=== PATIENT | female | born 1935 | race Caucasian/White ===

== ENCOUNTER 2018-07-27 11:50 | Emergency (ER) | payer MEDICARE, OTHER ==
[~2018-07-27] VITALS: Ht 162.6 cm; Wt 53.2 kg
[~2018-07-27 11:50] MED LIST: AMIO200T40 PO; ASPI81TA52 PO; ATOR20TA PO; CARV6.253 PO; CHOL2000 PO; FURO-150 PO; LORA1TAB PO; MELA3TAB PO; NITR0.4T48 SL; OMEG1CAP2 PO; RIVA20TA PO; SPIR25TA5 PO; VALS160T2 PO
[2018-07-27 12:40] LABS: BASOPHILS # (AUTO) 0.1 X10'3 (0-0.2); BASOPHILS % (AUTO) 0.7 % (0-1); EOSINOPHILS # (AUTO) 0.2 X10'3 (0-0.9); EOSINOPHILS % (AUTO) 2.4 % (0-6); HEMATOCRIT 40.9 % (35.0-45.0); HEMOGLOBIN 13.6 g/dl (12.0-16.0); LYMPHOCYTES # (AUTO) 2.4 X10'3 (1.1-4.8); MEAN CORPUSCULAR HEMOGLOBIN 30.2 PG (27.0-31.0); MEAN CORPUSCULAR HGB CONC 33.3 % (33.0-36.5); MEAN CORPUSCULAR VOLUME 90.5 FL (78-98); MEAN PLATELET VOLUME 9.6 FL (7.4-10.4); MONOCYTES # (AUTO) 1.1 X10'3 (0-0.9); NEUTROPHILS # (AUTO) 4.4 X10'3 (1.8-7.7); NEUTROPHILS % (AUTO) 53.9 % (42-75); PLATELET COUNT 239 X10'3 (140-440); RED BLOOD COUNT 4.52 X10'6 (4.20-5.60); RED CELL DISTRIBUTION WIDTH 17.2 % (11.5-14.5); WHITE BLOOD COUNT 8.2 X10'3 (4.5-11.0)
[2018-07-27 12:56] LABS: ALANINE AMINOTRANSFERASE 33 U/L (12-78); ALBUMIN 3.2 G/DL (3.4-5.0); ALBUMIN/GLOBULIN RATIO 0.7 (1.1-1.5); ALKALINE PHOSPHATASE 87 IU/L (46-116); ANION GAP 12 (8-16); ASPARTATE AMINO TRANSFERASE 63 U/L (10-37); BILIRUBIN,TOTAL 0.8 MG/DL (0.1-1.0); BLOOD UREA NITROGEN 29 MG/DL (7-18); BUN/CREATININE RATIO 14.4 (6.6-38.0); CALCIUM 11.3 MG/DL (8.5-10.1); CHLORIDE 95 MMOL/L (99-107); CREATININE 2.01 MG/DL (0.40-0.90); GLUCOSE 115 MG/DL (70-104); SODIUM 136 MMOL/L (135-145); TOTAL CARBON DIOXIDE 29.1 MMOL/L (24-32); TOTAL PROTEIN 7.6 G/DL (6.4-8.2); eGFR 24 ML/MIN
[2018-07-27 13:10] LABS: POTASSIUM 2.5 MMOL/L (3.5-5.1)
[2018-07-27 13:19] LABS: INR 1.2 INR
[2018-07-27] MEDS ORDERED: ondansetron/PF 4mg/2ml inj IV ONE (13:50)
[2018-07-27] MEDS ORDERED: magnesium 2GM in 50ml NS 50 ML IV ONE (14:10)
[2018-07-27 14:17] LABS: LIPASE 151 U/L (73-393); MAGNESIUM 2.2 MG/DL (1.5-2.4); TROPONIN I 0.04 NG/ML (0.0-0.05)
[2018-07-27] MEDS: potassium 10mEq/100ml NS w/LIDOcaine (10mg/bag) IV SCH ×2 (14:32→15:59)
[2018-07-27] MEDS ORDERED: potassium Cl 20 mEq SR tablet PO STA (15:39)
[2018-07-27] MEDS ORDERED: normal saline 1000ML IV soln IVB ONE (15:40)
[2018-07-27 17:01] VITALS: BP 157/61
[2018-07-27 17:32] LABS: CLARITY,URINE CLEAR (Clear); COLOR,URINE YELLOW (Yellow); GLUCOSE, URINE NEGATIVE (Neg); KETONES,URINE NEGATIVE (Neg); LEUKOCYTE ESTERASE ,URINE NEGATIVE (Neg); NITRITES, URINE NEGATIVE (Neg); OCCULT BLOOD,URINE TRACE-INTACT (Neg); PROTEIN,URINE NEGATIVE (Neg); UROBILINOGEN,URINE 0.2 E.U/dL (0.2-1.0)
[2018-07-27 17:35] LABS: UA COLLECTION TYPE CLN CATCH MIDSTREAM
[2018-07-27 17:39] LABS: BACTERIA,URINE NONE SEEN /HPF (Neg); HYALINE CASTS 0-3 /LPF (NEGATIVE); MUCUS STRANDS NONE SEEN /LPF (Neg); RBC,URINE 0-2 /HPF (0-2); SQUAMOUS EPITHELIAL CELL,UR FEW /LPF (FEW); WBC,URINE NONE SEEN /HPF (0-4)
[2018-07-27] MEDS ORDERED: ONDA4TAB12 PO (17:57)
[2018-07-27] MEDS ORDERED: POTA20TA19 PO (17:57)
== END 2018-07-27 18:09 | disposition home or self-care (01) ==
LOC: ER 11:51
DX: E87.6 Hypokalemia (principal); E86.0 Dehydration; R11.2 Nausea with vomiting, unspecified; I25.2 Old myocardial infarction; I25.10 Atherosclerotic heart disease of native coronary artery without angina pectoris; I10 Essential (primary) hypertension; I48.91 Unspecified atrial fibrillation; Z86.73 Personal history of transient ischemic attack (TIA), and cerebral infarction without residual deficits; M81.0 Age-related osteoporosis without current pathological fracture; Z98.61 Coronary angioplasty status; Z98.890 Other specified postprocedural states; Z88.6 Allergy status to analgesic agent; Z88.5 Allergy status to narcotic agent; Z88.8 Allergy status to other drugs, medicaments and biological substances; Z79.82 Long term (current) use of aspirin; Z79.899 Other long term (current) drug therapy
CPT/HCPCS: 36415; 71045; 74176; 80053; 81001; 83605; 83690; 83735; 84145; 84484; 85025; 85610; 93005; 96365; 96366; 96368; 96375; 99284; J2405; J3475; J3480; J7030

== ENCOUNTER 2018-08-18 01:31 | Inpatient (IN) | payer MEDICARE, OTHER ==
[~2018-08-18] VITALS: Ht 162.6 cm; Wt 50.0 kg
[~2018-08-18 01:31] MED LIST changes: +ONDA4TAB12 PO; +POTA20TA19 PO
[2018-08-18] MEDS ORDERED: ondansetron/PF 4mg/2ml inj IV ONE ×2 (02:00→02:55)
[2018-08-18] MEDS ORDERED: normal saline 1000ml 1,000 ML IV ONE (02:00)
[2018-08-18] MEDS ORDERED: acetaminophen 325mg tablet PO ONE (02:00)
[2018-08-18] MEDS ORDERED: HYDROcodone/acetaminophen 5mg/325mg tablet PO ONE (02:30)
[2018-08-18 02:56] LABS: ALANINE AMINOTRANSFERASE 28 U/L (12-78); ALBUMIN 3.1 G/DL (3.4-5.0); ALBUMIN/GLOBULIN RATIO 0.8 (1.1-1.5); ALKALINE PHOSPHATASE 66 IU/L (46-116); ANION GAP 9 (8-16); ASPARTATE AMINO TRANSFERASE 37 U/L (10-37); BILIRUBIN,TOTAL 0.7 MG/DL (0.1-1.0); BLOOD UREA NITROGEN 33 MG/DL (7-18); BUN/CREATININE RATIO 20.6 (6.6-38.0); CALCIUM 10.7 MG/DL (8.5-10.1); CHLORIDE 100 MMOL/L (99-107); GLUCOSE 124 MG/DL (70-104); MAGNESIUM 2.1 MG/DL (1.5-2.4); SODIUM 137 MMOL/L (135-145); TOTAL CARBON DIOXIDE 27.6 MMOL/L (24-32); TOTAL PROTEIN 7.1 G/DL (6.4-8.2); eGFR 31 ML/MIN
[2018-08-18 03:02] LABS: BASOPHILS % (AUTO) 0.6 % (0-1); EOSINOPHILS # (AUTO) 0.2 X10'3 (0-0.9); EOSINOPHILS % (AUTO) 2.9 % (0-6); HEMATOCRIT 41.9 % (35.0-45.0); HEMOGLOBIN 13.4 g/dl (12.0-16.0); LYMPHOCYTES # (AUTO) 2.1 X10'3 (1.1-4.8); LYMPHOCYTES % (AUTO) 26.7 % (21-51); MEAN CORPUSCULAR HEMOGLOBIN 29.9 PG (27.0-31.0); MEAN CORPUSCULAR VOLUME 93.5 FL (78-98); MEAN PLATELET VOLUME 10.7 FL (7.4-10.4); MONOCYTES # (AUTO) 0.9 X10'3 (0-0.9); MONOCYTES % (AUTO) 11.4 % (2-12); NEUTROPHILS # (AUTO) 4.6 X10'3 (1.8-7.7); NEUTROPHILS % (AUTO) 58.4 % (42-75); PLATELET COUNT 198 X10'3 (140-440); RED BLOOD COUNT 4.48 X10'6 (4.20-5.60); RED CELL DISTRIBUTION WIDTH 16.7 % (11.5-14.5); WHITE BLOOD COUNT 7.8 X10'3 (4.5-11.0)
[2018-08-18 03:07] LABS: INR 1.1 INR; PROTHROMBIN TIME 11.4 SECONDS (9.0-12.0)
[2018-08-18] MEDS ORDERED: potassium Cl 20 mEq SR tablet PO STA (03:14)
[2018-08-18] MEDS: potassium 10mEq/100ml NS w/LIDOcaine (10mg/bag) IV SCH ×2 (04:15→04:51)
[2018-08-18] MEDS: normal saline 1000ml 1,000 ML IV SCH ×3 (04:16→21:20)
[2018-08-18] MEDS ORDERED: FURO-150 PO (04:18)
[2018-08-18] MEDS ORDERED: DOCU-28 PO (04:18)
[2018-08-18] MEDS ORDERED: MELA1TAB17 PO (04:18)
[2018-08-18] MEDS ORDERED: AMLO2.5T5 PO (04:18)
[2018-08-18] MEDS ORDERED: LOSA50TA64 PO (04:18)
[2018-08-18] MEDS ORDERED: NITR0.4T51 SL (04:18)
[2018-08-18] MEDS ORDERED: CARV3.122 PO (04:18)
[2018-08-18] MEDS ORDERED: HYDROcodone/acetaminophen 5mg/325mg tablet PO PRN (04:20)
[2018-08-18] MEDS ORDERED: magnesium Cl slow-release 64mg tablet PO PRN (04:20)
[2018-08-18] MEDS ORDERED: mag hydrox/Alum hydrox/simeth 30ml oral suspension PO PRN (04:20)
[2018-08-18] MEDS ORDERED: ondansetron/PF 4mg/2ml inj IV PRN (04:20)
[2018-08-18] MEDS ORDERED: potassium Cl 20 mEq SR tablet PO PRN ×2 (04:20)
[2018-08-18] MEDS ORDERED: magnesium 4gm in 100ml NS 100 ML IV PRN (04:20)
[2018-08-18] MEDS ORDERED: potassium Cl 40MEQ/NS 500ml 500 ML IV PRN ×2 (04:20)
[2018-08-18] MEDS ORDERED: magnesium 2GM in 50ml NS 50 ML IV PRN (04:20)
[2018-08-18] MEDS ORDERED: morphine 4 MG/ML inj SYRINge IV PRN (04:20)
[2018-08-18] MEDS ORDERED: acetaminophen 325mg tablet PO PRN ×2 (04:20)
[2018-08-18] MEDS ORDERED: magnesium hydroxide 30ml (MOM) UD suspension PO PRN (04:20)
[2018-08-18] MEDS ORDERED: ESOM20CA38 PO (04:21)
[2018-08-18] MEDS ORDERED: docusate sod 100mg capsule PO PRN (04:25)
[2018-08-18] MEDS ORDERED: nitroGLYCERIN 0.4mg SUBLingual tab SL PRN (04:25)
[2018-08-18] MEDS: morphine 4 MG/ML inj SYRINge IV PRN ×2 (04:51→12:44)
[2018-08-18 05:13] LABS: COLOR,URINE YELLOW (Yellow); GLUCOSE, URINE NEGATIVE (Neg); KETONES,URINE NEGATIVE (Neg); LEUKOCYTE ESTERASE ,URINE NEGATIVE (Neg); NITRITES, URINE NEGATIVE (Neg); OCCULT BLOOD,URINE TRACE-INTACT (Neg); PH,URINE 5.5 (4.8-8.0); PROTEIN,URINE NEGATIVE (Neg); UROBILINOGEN,URINE 0.2 E.U/dL (0.2-1.0)
[2018-08-18 05:27] LABS: CLARITY,URINE SLIGHTLY CLOUDY (Clear); UA COLLECTION TYPE STRAIGHT CATH
[2018-08-18 05:28] LABS: BACTERIA,URINE FEW /HPF (Neg); MUCUS STRANDS FEW /LPF (Neg); RBC,URINE 0-2 /HPF (0-2); SQUAMOUS EPITHELIAL CELL,UR FEW /LPF (FEW); WBC,URINE 0-4 /HPF (0-4)
[2018-08-18] MEDS ORDERED: aspirin 81mg tablet.DR PO SCH (08:00)
[2018-08-18] MEDS ORDERED: amLODIPine 2.5mg tablet PO SCH (08:00)
[2018-08-18] MEDS: K and/or MAG REPLACEMENT MC SCH (08:00)
[2018-08-18] MEDS ORDERED: pantoprazole 40mg Tablet.DR PO SCH (08:00)
[2018-08-18] MEDS ORDERED: vitamin D (cholecalciferol) 1,000 unit tablet PO SCH (08:00)
[2018-08-18] MEDS ORDERED: losartan 50mg tablet PO SCH (08:00)
[2018-08-18] MEDS ORDERED: diatrozoate meglu/diatrozoate sod (37% iodine) 120ML oral solution PO ONE (15:25)
[2018-08-18] MEDS ORDERED: diatr meglu/diatrizoate 30ml oral sol.-(3 dose) bottle PO SCH (15:31)
[2018-08-18] MEDS ORDERED: proCHLORperazine 10 MG/2 ml inj IV PRN (15:35)
[2018-08-18] MEDS: diatr meglu/diatrizoate 30ml oral sol.-(3 dose) bottle PO SCH ×3 (18:40→21:00)
[2018-08-18] MEDS ORDERED: pantoprazole 40 MG vial IV SCH (20:00)
[2018-08-18] MEDS ORDERED: PYRIDOXINE HCL PO SCH (21:00)
[2018-08-18] MEDS ORDERED: MELATONIN PO SCH (21:00)
[2018-08-18] MEDS ORDERED: LORazepam 1 MG tablet PO SCH (21:00)
[2018-08-18] MEDS ORDERED: temazepam 15mg capsule PO PRN (21:00)
[2018-08-18] MEDS ORDERED: pantoprazole 40 MG vial IV ONE (21:25)
[2018-08-18] MEDS ORDERED: LORazepam 0.5 MG tablet PO ONE (21:25)
[2018-08-18] MEDS: atorvastatin 20mg tablet PO SCH (21:39)
--- NOTE | 2018-08-18 23:37 | NUR ---
RELIEVING RN FOR BREAK, PT IS SLEEPING ON HOSPITAL BED, RESP EVEN AND UNLABORED,
[2018-08-19] MEDS: normal saline 1000ml 1,000 ML IV SCH ×3 (00:16→20:26)
[2018-08-19] MEDS: morphine 4 MG/ML inj SYRINge IV PRN (03:55)
[2018-08-19] MEDS ORDERED: sincalide inj 1 MCG in normal saline 50ml IV soln 50 ML IV ONE (07:55)
[2018-08-19] MEDS: K and/or MAG REPLACEMENT MC SCH (08:00)
[2018-08-19] MEDS ORDERED: vitamin D (cholecalciferol) 1,000 unit tablet PO ONE (10:25)
[2018-08-19] MEDS ORDERED: losartan 50mg tablet PO ONE (11:05)
[2018-08-19] MEDS ORDERED: pantoprazole 40 MG vial IV ONE (11:05)
[2018-08-19] MEDS ORDERED: amLODIPine 2.5mg tablet PO ONE (11:05)
[2018-08-19 11:52] LABS: BASOPHILS # (AUTO) 0.1 X10'3 (0-0.2); BASOPHILS % (AUTO) 0.7 % (0-1); EOSINOPHILS # (AUTO) 0.2 X10'3 (0-0.9); EOSINOPHILS % (AUTO) 1.8 % (0-6); HEMATOCRIT 36.5 % (35.0-45.0); HEMOGLOBIN 11.7 g/dl (12.0-16.0); LYMPHOCYTES # (AUTO) 2.2 X10'3 (1.1-4.8); LYMPHOCYTES % (AUTO) 23.3 % (21-51); MEAN CORPUSCULAR HEMOGLOBIN 29.9 PG (27.0-31.0); MEAN CORPUSCULAR HGB CONC 32.1 % (33.0-36.5); MEAN CORPUSCULAR VOLUME 93.4 FL (78-98); MEAN PLATELET VOLUME 9.8 FL (7.4-10.4); MONOCYTES # (AUTO) 1.2 X10'3 (0-0.9); MONOCYTES % (AUTO) 13.1 % (2-12); NEUTROPHILS # (AUTO) 5.8 X10'3 (1.8-7.7); NEUTROPHILS % (AUTO) 61.1 % (42-75); PLATELET COUNT 148 X10'3 (140-440); RED BLOOD COUNT 3.91 X10'6 (4.20-5.60); RED CELL DISTRIBUTION WIDTH 16.9 % (11.5-14.5); WHITE BLOOD COUNT 9.5 X10'3 (4.5-11.0)
[2018-08-19 12:05] LABS: ALANINE AMINOTRANSFERASE 25 U/L (12-78); ALBUMIN 2.6 G/DL (3.4-5.0); ALBUMIN/GLOBULIN RATIO 0.7 (1.1-1.5); ALKALINE PHOSPHATASE 55 IU/L (46-116); ANION GAP 10 (8-16); ASPARTATE AMINO TRANSFERASE 31 U/L (10-37); BILIRUBIN,TOTAL 0.7 MG/DL (0.1-1.0); BLOOD UREA NITROGEN 14 MG/DL (7-18); BUN/CREATININE RATIO 15.1 (6.6-38.0); CALCIUM 8.8 MG/DL (8.5-10.1); CHLORIDE 110 MMOL/L (99-107); CREATININE 0.93 MG/DL (0.40-0.90); GLUCOSE 94 MG/DL (70-104); POTASSIUM 3.6 MMOL/L (3.5-5.1); SODIUM 144 MMOL/L (135-145); TOTAL CARBON DIOXIDE 23.7 MMOL/L (24-32); TOTAL PROTEIN 6.2 G/DL (6.4-8.2); eGFR 58 ML/MIN
[2018-08-19 12:08] LABS: MAGNESIUM 1.7 MG/DL (1.5-2.4)
[2018-08-19 12:29] LABS: TROPONIN I 0.07 NG/ML (0.0-0.05)
[2018-08-19] MEDS ORDERED: MIDAZolam 5mg/5ml vial ONE (12:37)
[2018-08-19] MEDS ORDERED: LIDOcaine Viscous 15ml cup ONE (12:37)
[2018-08-19] MEDS ORDERED: fentaNYL/PF 50MCG/1 ML 2ML syringe ONE (12:37)
--- NOTE | 2018-08-19 12:40 | NUR ---
PT ARRIVED TO FLOOR, ASSESSMENT AND 2 RN SKIN CHECK DONE. FAMILY IN ROOM. PT OFF FLOOR FOR EGD AND THEN SHE WILL BE TAKEN FOR HIDA SCAN
[2018-08-19 12:52] VITALS: BP 177/74
[2018-08-19 13:35] VITALS: BP 148/66
[2018-08-19 13:45] VITALS: BP 143/64
[2018-08-19 13:55] VITALS: BP 153/96
[2018-08-19 14:05] VITALS: BP 162/68
[2018-08-19] MEDS: HYDROcodone/acetaminophen 10/325mg tab PO PRN ×2 (16:06→21:35)
--- NOTE | 2018-08-19 16:29 | NUR ---
CARMEN JAVIER FROM [facility] SAYS PT IS WANTING TO BE LIMITED CODE, NO COMPRESSIONS, I HAVE PAGED DR HERNANDEZ REGARDING THIS. PT IS BACK TO FLOOR, I WILL PAGE HIM AGAIN SO HE CAN ADDRESS THIS WITH HER.
--- NOTE | 2018-08-19 17:10 | NUR ---
Dr Charles aware of pt want to be a limited code, he says he will talk to her in the morning regarding her wishes for code status
--- NOTE | 2018-08-19 18:42 | NUR ---
Problems reprioritized. Patient report given, questions answered & plan of care reviewed with
[2018-08-19 19:00] VITALS: BP 123/47
[2018-08-19] MEDS: LORazepam 0.5 MG tablet PO SCH (20:26)
[2018-08-19] MEDS: pantoprazole 40 MG vial IV SCH (20:26)
[2018-08-19] MEDS: atorvastatin 20mg tablet PO SCH (20:26)
[2018-08-20] VITALS: BP 120/43
[2018-08-20] MEDS: HYDROcodone/acetaminophen 10/325mg tab PO PRN ×3 (01:53→23:35)
[2018-08-20] MEDS: normal saline 1000ml 1,000 ML IV SCH ×2 (06:16→16:59)
[2018-08-20 07:00] VITALS: BP 135/56
[2018-08-20] MEDS: K and/or MAG REPLACEMENT MC SCH (07:03)
--- NOTE | 2018-08-20 07:12 | NUR ---
Patient in room DEYSI 358. I have received report from Espinoza JAVIER and had the opportunity to ask questions and assume patient care.
--- NOTE | 2018-08-20 07:36 | NUR ---
Problems reprioritized. Patient report given, questions answered & plan of care reviewed with Addendum: 08/20/18 at 0736 by Tu Gil RN Amended: Links added.
[2018-08-20] MEDS: amLODIPine 2.5mg tablet PO SCH (08:28)
[2018-08-20] MEDS: vitamin D (cholecalciferol) 1,000 unit tablet PO SCH (08:28)
[2018-08-20] MEDS: losartan 50mg tablet PO SCH (08:28)
[2018-08-20] MEDS: pantoprazole 40 MG vial IV SCH ×2 (08:29→20:53)
[2018-08-20 09:38] LABS: BASOPHILS % (AUTO) 0.4 % (0-1); EOSINOPHILS # (AUTO) 0.2 X10'3 (0-0.9); HEMATOCRIT 31.2 % (35.0-45.0); HEMOGLOBIN 10.1 g/dl (12.0-16.0); LYMPHOCYTES # (AUTO) 1.5 X10'3 (1.1-4.8); LYMPHOCYTES % (AUTO) 16.6 % (21-51); MEAN CORPUSCULAR HEMOGLOBIN 30.8 PG (27.0-31.0); MEAN CORPUSCULAR HGB CONC 32.4 % (33.0-36.5); MEAN PLATELET VOLUME 10.1 FL (7.4-10.4); MONOCYTES # (AUTO) 0.9 X10'3 (0-0.9); MONOCYTES % (AUTO) 10.2 % (2-12); NEUTROPHILS # (AUTO) 6.4 X10'3 (1.8-7.7); NEUTROPHILS % (AUTO) 70.8 % (42-75); PLATELET COUNT 138 X10'3 (140-440); RED BLOOD COUNT 3.29 X10'6 (4.20-5.60); RED CELL DISTRIBUTION WIDTH 16.6 % (11.5-14.5); WHITE BLOOD COUNT 9.1 X10'3 (4.5-11.0)
[2018-08-20 09:48] LABS: ALBUMIN 2.2 G/DL (3.4-5.0); ANION GAP 10 (8-16); BLOOD UREA NITROGEN 8 MG/DL (7-18); BUN/CREATININE RATIO 10.1 (6.6-38.0); CHLORIDE 111 MMOL/L (99-107); CREATININE 0.79 MG/DL (0.40-0.90); GLUCOSE 90 MG/DL (70-104); MAGNESIUM 1.6 MG/DL (1.5-2.4); POTASSIUM 3.3 MMOL/L (3.5-5.1); SODIUM 144 MMOL/L (135-145); TOTAL CARBON DIOXIDE 23.5 MMOL/L (24-32); eGFR 70 ML/MIN
[2018-08-20 12:00] VITALS: BP 131/74
--- NOTE | 2018-08-20 18:45 | NUR ---
Problems reprioritized. Patient report given, questions answered & plan of care reviewed with Nimo JAVIER.
[2018-08-20 20:00] VITALS: BP 147/59
[2018-08-20] MEDS: LORazepam 0.5 MG tablet PO SCH (20:53)
[2018-08-20] MEDS: atorvastatin 20mg tablet PO SCH (20:53)
[2018-08-21] VITALS: BP 134/51
[2018-08-21] MEDS: normal saline 1000ml 1,000 ML IV SCH ×2 (01:33→12:16)
[2018-08-21 06:16] LABS: BASOPHILS % (AUTO) 0.3 % (0-1); EOSINOPHILS # (AUTO) 0.3 X10'3 (0-0.9); EOSINOPHILS % (AUTO) 2.4 % (0-6); HEMATOCRIT 30.4 % (35.0-45.0); HEMOGLOBIN 10.1 g/dl (12.0-16.0); LYMPHOCYTES # (AUTO) 2.6 X10'3 (1.1-4.8); LYMPHOCYTES % (AUTO) 23.1 % (21-51); MEAN CORPUSCULAR HGB CONC 33.4 % (33.0-36.5); MEAN PLATELET VOLUME 10.5 FL (7.4-10.4); MONOCYTES # (AUTO) 1.7 X10'3 (0-0.9); MONOCYTES % (AUTO) 14.8 % (2-12); NEUTROPHILS # (AUTO) 6.8 X10'3 (1.8-7.7); NEUTROPHILS % (AUTO) 59.4 % (42-75); PLATELET COUNT 125 X10'3 (140-440); RED BLOOD COUNT 3.26 X10'6 (4.20-5.60); RED CELL DISTRIBUTION WIDTH 16.7 % (11.5-14.5); WHITE BLOOD COUNT 11.4 X10'3 (4.5-11.0)
[2018-08-21 06:20] LABS: ALBUMIN 2.1 G/DL (3.4-5.0); ANION GAP 11 (8-16); BLOOD UREA NITROGEN 7 MG/DL (7-18); BUN/CREATININE RATIO 10.4 (6.6-38.0); CALCIUM 7.8 MG/DL (8.5-10.1); CHLORIDE 110 MMOL/L (99-107); CREATININE 0.67 MG/DL (0.40-0.90); GLUCOSE 84 MG/DL (70-104); MAGNESIUM 1.4 MG/DL (1.5-2.4); POTASSIUM 3.1 MMOL/L (3.5-5.1); SODIUM 143 MMOL/L (135-145); TOTAL CARBON DIOXIDE 22.5 MMOL/L (24-32); eGFR 84 ML/MIN
--- NOTE | 2018-08-21 06:31 | NUR ---
Problems reprioritized. Patient report given, questions answered & plan of care reviewed with CONCEPCION Bah.
[2018-08-21] MEDS ORDERED: magnesium 4gm in 100ml NS 100 ML IV PRN (06:35)
[2018-08-21] MEDS ORDERED: potassium Cl 20 mEq SR tablet PO PRN (06:35)
[2018-08-21] MEDS ORDERED: magnesium 2GM in 50ml NS 50 ML IV PRN (06:35)
[2018-08-21] MEDS ORDERED: potassium Cl 40MEQ/NS 500ml 500 ML IV PRN ×2 (06:35)
[2018-08-21 07:52] VITALS: BP 135/51
[2018-08-21] MEDS: vitamin D (cholecalciferol) 1,000 unit tablet PO SCH (08:05)
[2018-08-21] MEDS: magnesium Cl slow-release 64mg tablet PO PRN ×2 (08:05→13:05)
[2018-08-21] MEDS: potassium Cl 20 mEq SR tablet PO PRN ×2 (08:06→13:05)
[2018-08-21] MEDS: pantoprazole 40 MG vial IV SCH (08:06)
[2018-08-21] MEDS: amLODIPine 2.5mg tablet PO SCH (08:06)
[2018-08-21] MEDS: losartan 50mg tablet PO SCH (08:06)
[2018-08-21] MEDS: K and/or MAG REPLACEMENT MC SCH (08:07)
[2018-08-21] MEDS: HYDROcodone/acetaminophen 10/325mg tab PO PRN (08:16)
[2018-08-21 11:21] VITALS: BP 123/45
--- NOTE | 2018-08-21 15:26 | NUR ---
pt left with nikole cargo in w/c with all belongings. report called to facility.
== END 2018-08-21 15:35 | DRG 562 ==
LOC: ER 01:31 → ED HOLD 04:16 → SUR 3N 08-19 12:05
PROVIDERS: ADMIT Hospitalist; ATTEND Hospitalist
PROC: 0DJ08ZZ Inspection of Upper Intestinal Tract, Via Natural or Artificial Opening Endoscopic (ICD-10-PCS; principal; 2018-08-19)
DX: S42.211A Unspecified displaced fracture of surgical neck of right humerus, initial encounter for closed fracture (principal); I21.A1 Myocardial infarction type 2; N17.9 Acute kidney failure, unspecified; I50.22 Chronic systolic (congestive) heart failure; E87.6 Hypokalemia; K22.2 Esophageal obstruction; I48.91 Unspecified atrial fibrillation; I25.10 Atherosclerotic heart disease of native coronary artery without angina pectoris; R00.1 Bradycardia, unspecified; W19.XXXA Unspecified fall, initial encounter; K44.9 Diaphragmatic hernia without obstruction or gangrene; E86.0 Dehydration; I11.0 Hypertensive heart disease with heart failure; K22.8 Other specified diseases of esophagus; M81.0 Age-related osteoporosis without current pathological fracture; Z66 Do not resuscitate; I25.2 Old myocardial infarction; Z86.73 Personal history of transient ischemic attack (TIA), and cerebral infarction without residual deficits; Z85.41 Personal history of malignant neoplasm of cervix uteri; Y93.89 Activity, other specified; Y92.89 Other specified places as the place of occurrence of the external cause; Y99.8 Other external cause status
CPT/HCPCS: 36415; 70450; 71045; 73030; 74176; 76700; 78226; 80048; 80053; 81001; 83735; 83880; 84484; 85025; 85610; 87070; 93005; 93306; 96374; 97116; 97162; 97530; 99152; 99285; A4620; A9537; C9113; G0378; J0780; J2250; J2270; J2405; J2805; J3010; J3480; J7030; J7040; Q9963

== ENCOUNTER 2018-10-16 04:57 | Inpatient (IN) | payer MEDICARE, OTHER ==
[~2018-10-16] VITALS: Ht 160 cm; Wt 45.5 kg
[~2018-10-16 04:57] MED LIST changes: -AMIO200T40 PO; +AMLO2.5T5 PO; +CARV3.122 PO; -CARV6.253 PO; +DOCU-28 PO; +ESOM20CA38 PO; +LOSA50TA64 PO; +MELA1TAB17 PO; -MELA3TAB PO; -NITR0.4T48 SL; +NITR0.4T51 SL; -OMEG1CAP2 PO; -ONDA4TAB12 PO; -POTA20TA19 PO; -RIVA20TA PO; -SPIR25TA5 PO; -VALS160T2 PO
--- NOTE | 2018-10-16 05:33 | NUR ---
Alex art in [facility] - 10/16/18 at 0534 by BELLE Patient awake and up to restroom.
[2018-10-16 05:41] LABS: BASOPHILS # (AUTO) 0.1 X10'3 (0-0.2); BASOPHILS % (AUTO) 0.9 % (0-1); EOSINOPHILS # (AUTO) 0.1 X10'3 (0-0.9); EOSINOPHILS % (AUTO) 1.1 % (0-6); HEMATOCRIT 49.7 % (35.0-45.0); HEMOGLOBIN 16.9 g/dl (12.0-16.0); LYMPHOCYTES # (AUTO) 2.8 X10'3 (1.1-4.8); MEAN CORPUSCULAR HEMOGLOBIN 31.6 PG (27.0-31.0); MEAN CORPUSCULAR HGB CONC 33.9 g/dL (33.0-36.5); MEAN CORPUSCULAR VOLUME 93.1 FL (78-98); MEAN PLATELET VOLUME 10.1 FL (7.4-10.4); MONOCYTES # (AUTO) 0.9 X10'3 (0-0.9); MONOCYTES % (AUTO) 12.5 % (2-12); NEUTROPHILS # (AUTO) 3.5 X10'3 (1.8-7.7); NEUTROPHILS % (AUTO) 47.5 % (42-75); PLATELET COUNT 185 X10'3 (140-440); RED BLOOD COUNT 5.34 X10'6 (4.20-5.60); RED CELL DISTRIBUTION WIDTH 16.5 % (11.5-14.5); WHITE BLOOD COUNT 7.3 X10'3 (4.5-11.0)
[2018-10-16 05:42] LABS: CLARITY,URINE CLEAR (Clear); COLOR,URINE YELLOW (Yellow); GLUCOSE, URINE NEGATIVE (Neg); KETONES,URINE NEGATIVE (Neg); LEUKOCYTE ESTERASE ,URINE NEGATIVE (Neg); NITRITES, URINE NEGATIVE (Neg); OCCULT BLOOD,URINE NEGATIVE (Neg); PROTEIN,URINE NEGATIVE (Neg); UROBILINOGEN,URINE 0.2 E.U/dL (0.2-1.0)
[2018-10-16 05:45] LABS: UA COLLECTION TYPE STRAIGHT CATH
[2018-10-16 05:58] LABS: INR 1.1 INR; PARTIAL THROMBOPLASTIN TIME 25 SECONDS (22-32); PROTHROMBIN TIME 11.5 SECONDS (9.0-12.0)
[2018-10-16 06:00] LABS: ALANINE AMINOTRANSFERASE 41 U/L (12-78); ALBUMIN 3.8 G/DL (3.4-5.0); ALBUMIN/GLOBULIN RATIO 0.8 (1.1-1.5); ALKALINE PHOSPHATASE 85 IU/L (46-116); ANION GAP 11 (8-16); ASPARTATE AMINO TRANSFERASE 58 U/L (10-37); BLOOD UREA NITROGEN 17 MG/DL (7-18); BUN/CREATININE RATIO 18.1 (6.6-38.0); CALCIUM 11.2 MG/DL (8.5-10.1); CHLORIDE 96 MMOL/L (99-107); CREATININE 0.94 MG/DL (0.40-0.90); ETHANOL < 0.010 GM/DL (0.0-0.010); GLUCOSE 94 MG/DL (70-104); SODIUM 137 MMOL/L (135-145); TOTAL CARBON DIOXIDE 29.8 MMOL/L (24-32); TOTAL PROTEIN 8.5 G/DL (6.4-8.2); TROPONIN I 0.11 NG/ML (0.0-0.05); eGFR 57 ML/MIN
[2018-10-16] MEDS ORDERED: acetaminophen 325mg tablet PO ONE (06:00)
[2018-10-16 06:25] LABS: POTASSIUM 2.1 MMOL/L (3.5-5.1)
[2018-10-16] MEDS ORDERED: potassium Cl 10 mEq/100mL bag IV ONE (06:30)
[2018-10-16] MEDS ORDERED: magnesium 2GM in 50ml NS 50 ML IV ONE ×2 (06:30→19:15)
[2018-10-16] MEDS ORDERED: normal saline 1000ml 1,000 ML IV ONE (06:35)
[2018-10-16] MEDS: potassium 10mEq/100ml NS w/LIDOcaine (10mg/bag) IV SCH ×2 (06:40→07:40)
[2018-10-16 06:50] LABS: MAGNESIUM 2.1 MG/DL (1.5-2.4)
[2018-10-16] MEDS ORDERED: magnesium 2GM in 50ml NS 50 ML IV PRN (08:40)
[2018-10-16] MEDS ORDERED: mag hydrox/Alum hydrox/simeth 30ml oral suspension PO PRN (08:40)
[2018-10-16] MEDS ORDERED: acetaminophen 325mg tablet PO PRN (08:40)
[2018-10-16] MEDS ORDERED: magnesium Cl slow-release 64mg tablet PO PRN (08:40)
[2018-10-16] MEDS ORDERED: potassium Cl 20 mEq SR tablet PO PRN (08:40)
[2018-10-16] MEDS ORDERED: magnesium hydroxide 30ml (MOM) UD suspension PO PRN (08:40)
[2018-10-16] MEDS ORDERED: magnesium 4gm in 100ml NS 100 ML IV PRN (08:40)
[2018-10-16] MEDS ORDERED: potassium Cl 40MEQ/NS 500ml 500 ML IV PRN ×2 (08:40)
[2018-10-16] MEDS ORDERED: potassium 10mEq/100ml NS w/LIDOcaine (10mg/bag) IV SCH (09:30)
--- NOTE | 2018-10-16 13:48 | NUR ---
I have received report from Arnold JAVIER in ER and had the opportunity to ask questions and assume patient care.
[2018-10-16 13:50] VITALS: BP 162/67
[2018-10-16] MEDS: LIDOcaine 1% 30ml vial 5 ML in potassium Cl 40MEQ/NS 500ml 500 ML IV SCH ×2 (17:35→23:24)
--- NOTE | 2018-10-16 18:23 | NUR ---
Problems reprioritized. Patient report given, questions answered & plan of care reviewed with Lillian JAVIER.
--- NOTE | 2018-10-16 19:10 | NUR ---
Patient states she has been having trouble swallowing her medications and eating. Granddaughter at bedside and confirm it. MD notified, Orders for NPO and swallow eval. All medications held tonight. Ativan PO changed to IV prn. Will continue with care. Patient Potassium 2.0. MD called back and ordered one time give of 2g IV mg to give after first bag of Potassium bag is done infusing. Will continue with orders.
[2018-10-16] MEDS ORDERED: dextrose 5%-1/2 normal saline 1,000 ML IV SCH (19:15)
[2018-10-16] MEDS ORDERED: docusate sod 100mg capsule PO PRN (19:25)
[2018-10-16] MEDS ORDERED: hydrALAZINE 20mg/ml inj. IV PRN (19:25)
[2018-10-16] MEDS ORDERED: hyDRALAzine 10mg tablet PO PRN (19:25)
[2018-10-16] MEDS ORDERED: nitroGLYCERIN 0.4mg SUBLingual tab SL PRN (19:25)
--- NOTE | 2018-10-16 19:30 | NUR ---
Patient complaining of peeing constantly and in little dribbles. Nurse ask aide to bladder scan patient. Bladder showed Greater than 600ml. notified and order for Dye catheter.
[2018-10-16 20:00] VITALS: BP 145/60
[2018-10-16] MEDS ORDERED: MELATONIN PO SCH (21:00)
[2018-10-16] MEDS: pyridoxine 50mg tablet PO SCH (21:00)
[2018-10-16] MEDS: LORazepam 1 MG tablet PO SCH (21:00)
[2018-10-16] MEDS: carVEDilol 3.125mg tablet PO SCH (21:00)
[2018-10-16] MEDS: Melatonin 3mg tablet PO SCH (21:00)
[2018-10-16] MEDS: atorvastatin 20mg tablet PO SCH (21:00)
[2018-10-16] MEDS ORDERED: PYRIDOXINE HCL PO SCH (21:00)
[2018-10-16] MEDS: LORazepam 2 mg/ml vial IV PRN (21:12)
[2018-10-17] VITALS: BP 129/59
--- NOTE | 2018-10-17 03:40 | NUR ---
Patient finished second bag of potassium replacement. Potassium lab draw schedule for 0530 this morning to check potassium level.
[2018-10-17 06:12] LABS: BASOPHILS # (AUTO) 0.1 X10'3 (0-0.2); BASOPHILS % (AUTO) 1.2 % (0-1); EOSINOPHILS # (AUTO) 0.1 X10'3 (0-0.9); EOSINOPHILS % (AUTO) 1.7 % (0-6); HEMOGLOBIN 12.6 g/dl (12.0-16.0); LYMPHOCYTES # (AUTO) 2.5 X10'3 (1.1-4.8); LYMPHOCYTES % (AUTO) 31.8 % (21-51); MEAN CORPUSCULAR HEMOGLOBIN 32.3 PG (27.0-31.0); MEAN CORPUSCULAR VOLUME 92.4 FL (78-98); MONOCYTES # (AUTO) 1.3 X10'3 (0-0.9); MONOCYTES % (AUTO) 16.8 % (2-12); NEUTROPHILS # (AUTO) 3.8 X10'3 (1.8-7.7); NEUTROPHILS % (AUTO) 48.5 % (42-75); PLATELET COUNT 166 X10'3 (140-440); RED CELL DISTRIBUTION WIDTH 16.7 % (11.5-14.5); WHITE BLOOD COUNT 7.7 X10'3 (4.5-11.0)
[2018-10-17 06:26] LABS: ALBUMIN 2.4 G/DL (3.4-5.0); ANION GAP 7 (8-16); BLOOD UREA NITROGEN 11 MG/DL (7-18); BUN/CREATININE RATIO 11.8 (6.6-38.0); CALCIUM 8.7 MG/DL (8.5-10.1); CHLORIDE 111 MMOL/L (99-107); CREATININE 0.93 MG/DL (0.40-0.90); GLUCOSE 87 MG/DL (70-104); MAGNESIUM 2.6 MG/DL (1.5-2.4); SODIUM 145 MMOL/L (135-145); TROPONIN I 0.08 NG/ML (0.0-0.05); eGFR 58 ML/MIN
[2018-10-17 06:37] LABS: POTASSIUM 2.8 MMOL/L (3.5-5.1)
[2018-10-17 06:42] LABS: ACANTHOCYTES 1+; ANISOCYTOSIS 1+; PLATELET ESTIMATE NORMAL
[2018-10-17 06:43] LABS: ELLIPTOCYTES FEW
[2018-10-17 08:00] VITALS: BP 147/66
[2018-10-17] MEDS ORDERED: CHOLECALCIFEROL PO SCH (08:00)
[2018-10-17] MEDS ORDERED: ESOMEPRAZOLE MAGNESIUM 20 MG PO SCH (08:00)
[2018-10-17] MEDS: K and/or MAG REPLACEMENT MC SCH (08:00)
[2018-10-17] MEDS: amLODIPine 2.5mg tablet PO SCH (09:52)
[2018-10-17] MEDS: pantoprazole 40mg Tablet.DR PO SCH (09:52)
[2018-10-17] MEDS: vitamin D (cholecalciferol) 1,000 unit tablet PO SCH (09:52)
[2018-10-17] MEDS: losartan 50mg tablet PO SCH (09:53)
[2018-10-17] MEDS: aspirin 81mg tablet.DR PO SCH (09:53)
[2018-10-17] MEDS: enoxaparin 40mg/0.4ml syringe SQ SCH (09:53)
[2018-10-17] MEDS: potassium Cl 20 mEq SR tablet PO PRN ×3 (10:31→21:07)
[2018-10-17 12:00] VITALS: BP 106/53
--- NOTE | 2018-10-17 14:14 | NUR ---
Mateo trigger: Pt mateo 12 w/ open buttock PU noted. Pt admit w/ dehydration,increased weakness and general deconditioning. Pt has severe weakness and is visibly severely cachectic w/ fat/muscle wasting upon RD visual assessment. Pt hx dysphagia advanced to pureed/thin liquid diet per [employer] but 0% PO meals. Ensure Enlive TIDWM added for additional kcal/protein needs for wound healing; MD and dietary notified. LBM 10/14. Will monitor for ONS acceptance and additional protein needs. On B6 and vitamin D which will help immune strength and protein metabolism. Pt qualifies for severe malnutrition based on above criteria; MD notified. Rec: 1. continue regular/pureed/thin liquid diet per [employer] 2. ensure enlive TIDWM 3. B6/vitamin D for wound healing per MD 4. weekly wts Addendum: 10/17/18 at [address] Amended: Links added.
[2018-10-17] MEDS: lactose-reduced food (Ensure Enlive) - 237ml bottle PO SCH (18:01)
[2018-10-17] MEDS ORDERED: magnesium 2GM in 50ml NS 50 ML IV ONE (18:25)
[2018-10-17] MEDS: ondansetron/PF 4mg/2ml inj IV PRN (19:04)
[2018-10-17 20:00] VITALS: BP 102/50
[2018-10-17] MEDS: carVEDilol 3.125mg tablet PO SCH (21:00)
[2018-10-17] MEDS: atorvastatin 20mg tablet PO SCH (21:08)
[2018-10-17] MEDS: Melatonin 3mg tablet PO SCH (21:08)
[2018-10-17] MEDS: LORazepam 1 MG tablet PO SCH (21:08)
[2018-10-17] MEDS: pyridoxine 50mg tablet PO SCH (21:09)
--- NOTE | 2018-10-17 21:13 | NUR ---
Coreg held tonight. HR too low at 48. Bp 102/50
[2018-10-18] VITALS: BP 127/55
[2018-10-18 04:34] LABS: BASOPHILS # (AUTO) 0.1 X10'3 (0-0.2); BASOPHILS % (AUTO) 0.9 % (0-1); EOSINOPHILS # (AUTO) 0.2 X10'3 (0-0.9); EOSINOPHILS % (AUTO) 2.9 % (0-6); HEMATOCRIT 35.5 % (35.0-45.0); LYMPHOCYTES # (AUTO) 2.5 X10'3 (1.1-4.8); LYMPHOCYTES % (AUTO) 30.9 % (21-51); MEAN CORPUSCULAR HEMOGLOBIN 31.6 PG (27.0-31.0); MEAN CORPUSCULAR HGB CONC 33.8 g/dL (33.0-36.5); MEAN CORPUSCULAR VOLUME 93.6 FL (78-98); MONOCYTES # (AUTO) 0.9 X10'3 (0-0.9); MONOCYTES % (AUTO) 11.4 % (2-12); NEUTROPHILS # (AUTO) 4.3 X10'3 (1.8-7.7); NEUTROPHILS % (AUTO) 53.9 % (42-75); PLATELET COUNT 146 X10'3 (140-440); RED CELL DISTRIBUTION WIDTH 16.9 % (11.5-14.5); WHITE BLOOD COUNT 8.1 X10'3 (4.5-11.0)
[2018-10-18 04:47] LABS: ALBUMIN 2.3 G/DL (3.4-5.0); ANION GAP 5 (8-16); BLOOD UREA NITROGEN 13 MG/DL (7-18); BUN/CREATININE RATIO 15.1 (6.6-38.0); CALCIUM 8.8 MG/DL (8.5-10.1); CHLORIDE 110 MMOL/L (99-107); CREATININE 0.86 MG/DL (0.40-0.90); GLUCOSE 84 MG/DL (70-104); MAGNESIUM 2.4 MG/DL (1.5-2.4); POTASSIUM 4.5 MMOL/L (3.5-5.1); SODIUM 140 MMOL/L (135-145); TOTAL CARBON DIOXIDE 24.9 MMOL/L (24-32); eGFR 63 ML/MIN
[2018-10-18 07:00] VITALS: BP 132/64
[2018-10-18] MEDS: K and/or MAG REPLACEMENT MC SCH (08:00)
[2018-10-18] MEDS: lactose-reduced food (Ensure Enlive) - 237ml bottle PO SCH ×3 (08:00→18:03)
[2018-10-18] MEDS: enoxaparin 40mg/0.4ml syringe SQ SCH (10:03)
[2018-10-18] MEDS: losartan 50mg tablet PO SCH (10:03)
[2018-10-18] MEDS: vitamin D (cholecalciferol) 1,000 unit tablet PO SCH (10:03)
[2018-10-18] MEDS: amLODIPine 2.5mg tablet PO SCH (10:03)
[2018-10-18] MEDS: aspirin 81mg tablet.DR PO SCH (10:03)
[2018-10-18] MEDS: pantoprazole 40mg Tablet.DR PO SCH (10:05)
[2018-10-18] MEDS ORDERED: magnesium hydroxide 30ml (MOM) UD suspension PO PRN (11:20)
[2018-10-18] MEDS ORDERED: bisacodyl 10mg suppository rectal RC PRN (11:20)
[2018-10-18 11:35] VITALS: BP 129/61
[2018-10-18] MEDS: ondansetron/PF 4mg/2ml inj IV PRN ×2 (14:05→20:04)
--- NOTE | 2018-10-18 18:10 | NUR ---
Received report from Italia JAVIER pt is awake just finished dinner on RA, stating her bottom was bothering her a bit so we turned pt to get her off hip
[2018-10-18 19:00] VITALS: BP 137/65
[2018-10-18] MEDS: carVEDilol 3.125mg tablet PO SCH (21:00)
[2018-10-18] MEDS: LORazepam 1 MG tablet PO SCH (21:00)
[2018-10-18] MEDS: acetaminophen 325mg tablet PO PRN (21:04)
[2018-10-18] MEDS: Melatonin 3mg tablet PO SCH (21:04)
[2018-10-18] MEDS: pyridoxine 50mg tablet PO SCH (21:04)
[2018-10-18] MEDS: atorvastatin 20mg tablet PO SCH (21:05)
[2018-10-18] MEDS: docusate sod 100mg capsule PO SCH (21:05)
[2018-10-18] MEDS: LORazepam 2 mg/ml vial IV PRN (22:41)
[2018-10-19 00:07] VITALS: BP 125/61
[2018-10-19] MEDS: acetaminophen 325mg tablet PO PRN ×2 (04:03→19:11)
[2018-10-19 05:10] LABS: BASOPHILS # (AUTO) 0.1 X10'3 (0-0.2); BASOPHILS % (AUTO) 0.8 % (0-1); EOSINOPHILS # (AUTO) 0.2 X10'3 (0-0.9); EOSINOPHILS % (AUTO) 2.7 % (0-6); HEMATOCRIT 36.7 % (35.0-45.0); HEMOGLOBIN 12.1 g/dl (12.0-16.0); LYMPHOCYTES # (AUTO) 3.2 X10'3 (1.1-4.8); LYMPHOCYTES % (AUTO) 37.3 % (21-51); MEAN CORPUSCULAR HEMOGLOBIN 31.3 PG (27.0-31.0); MEAN CORPUSCULAR VOLUME 94.9 FL (78-98); MONOCYTES # (AUTO) 0.9 X10'3 (0-0.9); MONOCYTES % (AUTO) 10.9 % (2-12); NEUTROPHILS # (AUTO) 4.1 X10'3 (1.8-7.7); NEUTROPHILS % (AUTO) 48.3 % (42-75); PLATELET COUNT 148 X10'3 (140-440); RED BLOOD COUNT 3.87 X10'6 (4.20-5.60); RED CELL DISTRIBUTION WIDTH 16.5 % (11.5-14.5); WHITE BLOOD COUNT 8.6 X10'3 (4.5-11.0)
[2018-10-19 05:16] LABS: ALBUMIN 2.3 G/DL (3.4-5.0); ANION GAP 5 (8-16); BLOOD UREA NITROGEN 10 MG/DL (7-18); BUN/CREATININE RATIO 12.3 (6.6-38.0); CALCIUM 8.9 MG/DL (8.5-10.1); CHLORIDE 108 MMOL/L (99-107); CREATININE 0.81 MG/DL (0.40-0.90); GLUCOSE 85 MG/DL (70-104); MAGNESIUM 1.7 MG/DL (1.5-2.4); POTASSIUM 3.9 MMOL/L (3.5-5.1); SODIUM 139 MMOL/L (135-145); TOTAL CARBON DIOXIDE 25.8 MMOL/L (24-32); eGFR 68 ML/MIN
--- NOTE | 2018-10-19 06:35 | NUR ---
gave report to Lesvia JAVIER pt is resting on RA breaths even and unlabored, bed alarm on in no apparent distress call light and items of freq use within reach.
[2018-10-19 07:00] VITALS: BP 104/67
[2018-10-19] MEDS: lactose-reduced food (Ensure Enlive) - 237ml bottle PO SCH ×3 (08:00→18:00)
[2018-10-19] MEDS: docusate sod 100mg capsule PO SCH ×2 (08:00→20:00)
[2018-10-19] MEDS: K and/or MAG REPLACEMENT MC SCH (08:00)
[2018-10-19] MEDS: losartan 50mg tablet PO SCH (08:38)
[2018-10-19] MEDS: aspirin 81mg tablet.DR PO SCH (08:38)
[2018-10-19] MEDS: pantoprazole 40mg Tablet.DR PO SCH (08:38)
[2018-10-19] MEDS: amLODIPine 2.5mg tablet PO SCH (08:39)
[2018-10-19] MEDS: furosemide 20MG tablet PO SCH (08:39)
[2018-10-19] MEDS: vitamin D (cholecalciferol) 1,000 unit tablet PO SCH (08:40)
[2018-10-19] MEDS: enoxaparin 40mg/0.4ml syringe SQ SCH (08:40)
[2018-10-19 11:00] VITALS: BP 104/71
[2018-10-19] MEDS: ondansetron/PF 4mg/2ml inj IV PRN ×2 (12:19→19:08)
--- NOTE | 2018-10-19 18:20 | NUR ---
Received report from Lesvia JAVIER pt is awake and alert requesting to use the bedpan,
--- NOTE | 2018-10-19 18:31 | NUR ---
PT. AWAKE AND ALERT, HAD JUST FINISHED DINNER, REQUESTING BEDPAN, PUT ON BEDPAN, REPORT GIVEN TO JAMI JAVIER.
[2018-10-19 19:15] VITALS: BP 130/67
[2018-10-19] MEDS: atorvastatin 20mg tablet PO SCH (20:37)
[2018-10-19] MEDS: carVEDilol 3.125mg tablet PO SCH (20:37)
[2018-10-19] MEDS: pyridoxine 50mg tablet PO SCH (20:37)
[2018-10-19] MEDS: Melatonin 3mg tablet PO SCH (20:38)
[2018-10-19] MEDS: LORazepam 1 MG tablet PO SCH (21:00)
[2018-10-19] MEDS: LORazepam 2 mg/ml vial IV PRN (22:08)
[2018-10-20] VITALS: BP 103/41
--- NOTE | 2018-10-20 06:20 | NUR ---
Patient in room DEYSI 359. I have received report from CONCEPCION Bustillo and had the opportunity to ask questions and assume patient care. Patient in no apparent distress on room air. Call light attached to patient gown per patient request. Call light and items of frequent use in reach of patient. Bed alarm on.
--- NOTE | 2018-10-20 06:26 | NUR ---
Gave report to She JAVIER pt is awake and alert stating she is cold, turned up heat in room, on RA in no apparent ditresss, clipped call light to gown
[2018-10-20 08:00] VITALS: BP 132/61
[2018-10-20] MEDS: docusate sod 100mg capsule PO SCH (08:00)
[2018-10-20] MEDS: lactose-reduced food (Ensure Enlive) - 237ml bottle PO SCH ×2 (08:00→13:05)
[2018-10-20] MEDS: K and/or MAG REPLACEMENT MC SCH (08:00)
[2018-10-20] MEDS: pantoprazole 40mg Tablet.DR PO SCH (09:18)
[2018-10-20] MEDS: aspirin 81mg tablet.DR PO SCH (09:19)
[2018-10-20] MEDS: losartan 50mg tablet PO SCH (09:19)
[2018-10-20] MEDS: amLODIPine 2.5mg tablet PO SCH (09:20)
[2018-10-20] MEDS: furosemide 20MG tablet PO SCH (09:20)
[2018-10-20] MEDS: vitamin D (cholecalciferol) 1,000 unit tablet PO SCH (09:21)
[2018-10-20] MEDS: enoxaparin 40mg/0.4ml syringe SQ SCH (09:21)
[2018-10-20 11:00] VITALS: BP 122/60
[2018-10-20] MEDS: ondansetron/PF 4mg/2ml inj IV PRN ×2 (12:39→12:51)
--- NOTE | 2018-10-20 12:51 | NUR ---
Reassessment: Pt s/p BSS 10/18 and per SMALL ARMS REPAIRER pt tolerating pureed diet with thin liquids. Documented PO intake 25-50% average with average 50% at breakfast this AM and 25% intake of ONS likely closely meeting nutrient needs for geriatric age. LBM 10/19. Per CM notes pt accepted to [facility] and pending d/c today. Will continue to follow and make recommendations as appropriate. Rec: 1. continue regular/pureed/thin liquid diet per SMALL ARMS REPAIRER 2. Ensure Enlive TIDWM 3. B6/vitamin D for wound healing per MD 4. weekly wts Addendum: 10/20/18 at [address] Amended: Links added.
--- NOTE | 2018-10-20 13:03 | NUR ---
Went to give patient Zofran for nausea. Patient PIV was infiltrated and very painful. IV removed with cannula intact. Patient due to leave to [facility], patient stated that she is okay without the Zofran. Will not restart IV since patient is leaving.
--- NOTE | 2018-10-20 14:30 | NUR ---
Patient discharged to [facility]. Report called at 1250 to receiving nurse Lizzie. Patient left via ride arranged for transferring patients. Patient alert and oriented and in no apparent distress at this time. patient PIV removed with cannula intact. Tele removed and returned to PCU. Discharge wound pictures taken and placed in chart. Dye cath left in place for acute urinary retention.
== END 2018-10-20 14:38 | DRG 291 ==
LOC: ER 04:58 → ED HOLD 08:36 → SUR 3N 13:43 → OBSVTOIN 19:13 → SUR 3N 10-19 13:33
PROVIDERS: ADMIT Hospitalist; ATTEND Internal Medicine
DX: I11.0 Hypertensive heart disease with heart failure (principal); E43 Unspecified severe protein-calorie malnutrition; I69.351 Hemiplegia and hemiparesis following cerebral infarction affecting right dominant side; Z68.1 Body mass index [BMI] 19.9 or less, adult; I50.33 Acute on chronic diastolic (congestive) heart failure; E83.52 Hypercalcemia; E87.6 Hypokalemia; E86.0 Dehydration; F03.90 Unspecified dementia, unspecified severity, without behavioral disturbance, psychotic disturbance, mood disturbance, and anxiety; F41.9 Anxiety disorder, unspecified; H91.90 Unspecified hearing loss, unspecified ear; I25.10 Atherosclerotic heart disease of native coronary artery without angina pectoris; I48.0 Paroxysmal atrial fibrillation; I08.1 Rheumatic disorders of both mitral and tricuspid valves; M81.0 Age-related osteoporosis without current pathological fracture; R73.9 Hyperglycemia, unspecified; E78.5 Hyperlipidemia, unspecified; R74.8 Abnormal levels of other serum enzymes; R13.10 Dysphagia, unspecified; R62.7 Adult failure to thrive; Z91.041 Radiographic dye allergy status; I25.2 Old myocardial infarction; Z88.8 Allergy status to other drugs, medicaments and biological substances; Z91.048 Other nonmedicinal substance allergy status; Z88.6 Allergy status to analgesic agent; Z79.82 Long term (current) use of aspirin; Z79.899 Other long term (current) drug therapy; Z85.41 Personal history of malignant neoplasm of cervix uteri; S42.211D Unspecified displaced fracture of surgical neck of right humerus, subsequent encounter for fracture with routine healing
CPT/HCPCS: 36415; 71045; 73030; 80048; 80053; 80320; 81003; 82948; 83735; 84132; 84484; 85025; 85610; 85730; 87070; 92616; 93005; 97110; 97116; 97530; G0378; J1650; J2060; J2405; J3475; J3480; J3490

== ENCOUNTER 2018-11-14 09:56 | Inpatient (IN) | payer MEDICARE, OTHER ==
[~2018-11-14] VITALS: Ht 162.6 cm; Wt 45.0 kg
[~2018-11-14 09:56] MED LIST changes: -FURO-150 PO
[2018-11-14] MEDS ORDERED: normal saline 1000ML IV soln IVB ONE (10:05)
--- NOTE | 2018-11-14 10:10 | NUR ---
PT LYING IN GURNEY, HOB AT 30 DEGREES, NO S&S OF DISTRESS, PT CONTINUES TO BE VERBALLY NONRESPONSIVE/ALTERED, VS STABLE. WILL CONTINUE TO MONITOR
--- NOTE | 2018-11-14 10:22 | NUR ---
PT AT CT WITH BARTENDER SERVER
[2018-11-14 10:28] LABS: BASOPHILS # (AUTO) 0.1 X10'3 (0-0.2); BASOPHILS % (AUTO) 0.7 % (0-1); EOSINOPHILS % (AUTO) 0 % (0-6); HEMATOCRIT 42.5 % (35.0-45.0); LYMPHOCYTES # (AUTO) 2.1 X10'3 (1.1-4.8); LYMPHOCYTES % (AUTO) 16.5 % (21-51); MEAN CORPUSCULAR HEMOGLOBIN 31.9 PG (27.0-31.0); MEAN CORPUSCULAR VOLUME 96.6 FL (78-98); MEAN PLATELET VOLUME 9.8 FL (7.4-10.4); MONOCYTES % (AUTO) 8.1 % (2-12); NEUTROPHILS # (AUTO) 9.4 X10'3 (1.8-7.7); NEUTROPHILS % (AUTO) 74.7 % (42-75); PLATELET COUNT 206 X10'3 (140-440); RED CELL DISTRIBUTION WIDTH 15.7 % (11.5-14.5); WHITE BLOOD COUNT 12.6 X10'3 (4.5-11.0)
[2018-11-14 10:40] LABS: INR 1.1 INR; PROTHROMBIN TIME 11.4 SECONDS (9.0-12.0)
[2018-11-14 10:44] LABS: ALANINE AMINOTRANSFERASE 27 U/L (12-78); ALBUMIN 2.5 G/DL (3.4-5.0); ALBUMIN/GLOBULIN RATIO 0.6 (1.1-1.5); ALKALINE PHOSPHATASE 59 IU/L (46-116); ANION GAP 9 (8-16); ASPARTATE AMINO TRANSFERASE 30 U/L (10-37); BILIRUBIN,TOTAL 0.7 MG/DL (0.1-1.0); BLOOD UREA NITROGEN 33 MG/DL (7-18); CALCIUM 9.5 MG/DL (8.5-10.1); CHLORIDE 111 MMOL/L (99-107); GLUCOSE 110 MG/DL (70-104); POTASSIUM 5.2 MMOL/L (3.5-5.1); SODIUM 143 MMOL/L (135-145); TOTAL CARBON DIOXIDE 22.9 MMOL/L (24-32); TOTAL PROTEIN 6.4 G/DL (6.4-8.2); eGFR 48 ML/MIN
[2018-11-14] MEDS ORDERED: CefTRIAXone 2gm/D5W 50ml 50 ML IV ONE (11:10)
[2018-11-14] MEDS ORDERED: azithromycin/NS 500mg/250ml 250 ML IV ONE (11:10)
--- NOTE | 2018-11-14 11:10 | NUR ---
PT LYING IN GURNEY, HOB AT 30 DEGREES, NO S&S OF DISTRESS, PT CONTINUES TO BE VERBALLY NONRESPONSIVE/ALTERED, VS STABLE. WILL CONTINUE TO MONITOR
[2018-11-14 11:17] LABS: CLARITY,URINE CLOUDY (Clear); COLOR,URINE YELLOW (Yellow); GLUCOSE, URINE NEGATIVE (Neg); KETONES,URINE NEGATIVE (Neg); LEUKOCYTE ESTERASE ,URINE NEGATIVE (Neg); NITRITES, URINE NEGATIVE (Neg); OCCULT BLOOD,URINE NEGATIVE (Neg); PH,URINE 7.5 (4.8-8.0); PROTEIN,URINE NEGATIVE (Neg); UROBILINOGEN,URINE 0.2 E.U/dL (0.2-1.0)
[2018-11-14 11:23] LABS: UA COLLECTION TYPE STRAIGHT CATH
[2018-11-14 11:29] LABS: BACTERIA,URINE 4+ /HPF (Neg); RBC,URINE NONE SEEN /HPF (0-2); SQUAMOUS EPITHELIAL CELL,UR NONE SEEN /LPF (FEW)
[2018-11-14] MEDS ORDERED: morphine 4 MG/ML inj SYRINge IV PRN ×2 (11:35)
[2018-11-14] MEDS ORDERED: acetaminophen 325mg tablet PO PRN (11:35)
[2018-11-14] MEDS ORDERED: mag hydrox/Alum hydrox/simeth 30ml oral suspension PO PRN (11:35)
[2018-11-14] MEDS ORDERED: ondansetron/PF 4mg/2ml inj IV PRN (11:35)
--- NOTE | 2018-11-14 11:50 | NUR ---
NIVIA RODRIGUEZ NOTIFIED OF PT POTASSIUM 5.2, NO ORDERS RECEIVED AT THIS TIME, [place] HOSPITALIST TO TREAT HIGH POTASSIUM.
--- NOTE | 2018-11-14 11:55 | NUR ---
NIVIA RODRIGUEZ AT BEDSIDE TO RE-EVAL PT AND SPEAK WITH PT GRANDDAUGHTER BENSON
[2018-11-14] MEDS: dextrose 5%-1/2 normal saline 1,000 ML IV SCH ×2 (12:19→23:52)
[2018-11-14] MEDS ORDERED: MAGN400O6 PO (12:31)
[2018-11-14] MEDS ORDERED: FURO20TA4 PO (12:31)
[2018-11-14] MEDS ORDERED: ONDA4TAB6 PO (12:31)
[2018-11-14] MEDS ORDERED: OMEP20TA5 PO (12:31)
[2018-11-14] MEDS ORDERED: MULT-933 PO (12:31)
[2018-11-14] MEDS ORDERED: BISA10SU8 RC (12:31)
[2018-11-14] MEDS ORDERED: PYRI50TA13 PO (12:31)
[2018-11-14] MEDS ORDERED: [UNRECOGNIZED DRUG - CODE] SQ (12:31)
[2018-11-14] MEDS ORDERED: MEGE40TA27 PO (12:31)
[2018-11-14] MEDS ORDERED: AMIO200T40 PO (12:31)
[2018-11-14] MEDS ORDERED: MELA3TAB PO (12:31)
[2018-11-14] MEDS ORDERED: POTA10TA15 PO (12:31)
[2018-11-14] MEDS ORDERED: METO-292 PO (12:31)
[2018-11-14] MEDS ORDERED: TRAM50TA2 PO (12:31)
--- NOTE | 2018-11-14 13:35 | NUR ---
PAGE TO DR. HERNANDEZ TO INFORM OF PATIENT'S LACTATE LEVEL INCREASING FROM 3.4 TO 4.2. AWAITING RESPONSE OR FURTHER ORDERS. IV OF D5.45 NS INFUSING AT 100 ML/HR ON PUMP. TEMP 99.5 AX.
--- NOTE | 2018-11-14 14:16 | NUR ---
CALLED DR HERNANDEZ AND NOTIFIED OF PT BP 92/51 AND RECIEVED VERBAL ORDER FOR 1 L NS BOLUS. WILL ADMINISTER AND CONTINUE TO MONITOR PT.
[2018-11-14] MEDS ORDERED: normal saline 1000ml 1,000 ML IV ONE (14:20)
--- NOTE | 2018-11-14 14:36 | NUR ---
DR HERNANDEZ NOTIFIED OF PT INITIAL LACTIC 3.4 REPEAT LACTIC 4.2, REITTERATED DECREASED BLOOD PRESSURE 92/51, AND POTASSIUM 5.2. NO ADDITIONAL ORDERS RECEIVED AT THIS TIME, WILL CONTINUE TO MONITOR PT.
--- NOTE | 2018-11-14 15:48 | NUR ---
DR HERNANDEZ AT BEDSIDE, UPDATED HOSPITALIST OF RECENT HX OVER LAST 10 DAYS PER GRANDDAUGHTER REPORTS, INFORMED OF ABX AND NS BOLUS, PT BP IMPROVING NOW 101/57 WHEN PROVIDER AT BEDSIDE, PROVIDER REPORTS WILL ORDER ZOSYN.
[2018-11-14] MEDS: piperacillin/tazo 4.5gm/100ml 100 ML IV SCH (16:15)
--- NOTE | 2018-11-14 16:22 | NUR ---
PT LYING IN GURNEY, HOB AT 30 DEGREES, NO S&S OF DISTRESS, PT CONTINUES TO BE VERBALLY NONRESPONSIVE/ALTERED, VS STABLE. WILL CONTINUE TO MONITOR
--- NOTE | 2018-11-14 17:33 | NUR ---
NOTIFIED DR HERNANDEZ OF PT BP 95/40, NO ORDERS AT THIS TIME EXCEPT TO NOTIFY IF SBP IN 80S
--- NOTE | 2018-11-14 19:39 | NUR ---
Patient remains supine in bed with even, unlabored breathing and VS WNL. There is still no response from her.
[2018-11-14 20:15] VITALS: BP 113/56
--- NOTE | 2018-11-14 20:15 | NUR ---
Patient is unresponsive, right hand is contracted, Addendum: 11/15/18 at 0214 by Matthew Shelton RN Amended: Links added.
[2018-11-15] MEDS: piperacillin/tazo 4.5gm/100ml 100 ML IV SCH ×2 (00:47→08:50)
--- NOTE | 2018-11-15 06:00 | NUR ---
Patient in room DYESI 360. I have received report from LG JAVIER and had the opportunity to ask questions and assume patient care.
[2018-11-15 06:35] LABS: BASOPHILS % (AUTO) 0.3 % (0-1); EOSINOPHILS % (AUTO) 0.4 % (0-6); HEMATOCRIT 33.5 % (35.0-45.0); HEMOGLOBIN 11.1 g/dl (12.0-16.0); LYMPHOCYTES % (AUTO) 15.7 % (21-51); MEAN CORPUSCULAR HEMOGLOBIN 31.9 PG (27.0-31.0); MEAN CORPUSCULAR HGB CONC 33.2 g/dL (33.0-36.5); MEAN CORPUSCULAR VOLUME 96.1 FL (78-98); MONOCYTES # (AUTO) 1.4 X10'3 (0-0.9); MONOCYTES % (AUTO) 11.2 % (2-12); NEUTROPHILS # (AUTO) 9.1 X10'3 (1.8-7.7); NEUTROPHILS % (AUTO) 72.4 % (42-75); PLATELET COUNT 168 X10'3 (140-440); RED BLOOD COUNT 3.49 X10'6 (4.20-5.60); RED CELL DISTRIBUTION WIDTH 15.7 % (11.5-14.5); WHITE BLOOD COUNT 12.5 X10'3 (4.5-11.0)
[2018-11-15 06:54] LABS: ANION GAP 13 (8-16); BLOOD UREA NITROGEN 25 MG/DL (7-18); BUN/CREATININE RATIO 28.4 (6.6-38.0); CALCIUM 7.8 MG/DL (8.5-10.1); CHLORIDE 114 MMOL/L (99-107); CREATININE 0.88 MG/DL (0.40-0.90); GLUCOSE 95 MG/DL (70-104); POTASSIUM 3.6 MMOL/L (3.5-5.1); SODIUM 145 MMOL/L (135-145); TOTAL CARBON DIOXIDE 18.3 MMOL/L (24-32); eGFR 62 ML/MIN
[2018-11-15 06:55] LABS: ALBUMIN 1.9 G/DL (3.4-5.0)
--- NOTE | 2018-11-15 11:00 | NUR ---
Mateo trigger: Mateo 10 w/ skin intact and no edema. Pt admit w/ severe sepsis, ALOC, toxic encephalopathy, and aspiration pneumonitis hx dysphagia. Currently on full liquid diet w/ PO pending. RD ordered THEATRE ARTS PROFESSOR BSS since none yet this admit and DX aspiration w/ dysphagia hx. Pt is ALOC AOx0 w/ rigid strength. Pt asleep during RD visit but sister who lives w/ her and niece present report 30# wt loss r/t low appetite and dysphagia since of last year which matches prior wt hx on admits; 23% UBW loss 4 months severe. Pt is severely cachectic, weak, w/ evident muscle/fat wasting and qualifies for severe malnutrition at this time; notified. RD verbally educated pt family on importance of protein at this time but will have to hold off thin liquid ONS until THEATRE ARTS PROFESSOR BSS for liquid consistency. Family understanding and reports she was previously on pureed diet at [facility] last time she was ill. Can send ensure puddings TIDWM until BSS for additional protein/kcal needs. Dietary notified. Will continue to monitor. Rec: 1. advance diet per THEATRE ARTS PROFESSOR to regular 2. ensure pudding TIDWM 3. monitor for thin liquid ONS needs pending THEATRE ARTS PROFESSOR BSS and PO hx 4. weekly scaled wts 5. encourage PO Addendum: 11/15/18 at [address] Amended: Links added.
--- NOTE | 2018-11-15 11:04 | NUR ---
SISTER CURT AT BEDSIDE WITH NIECE. I SPOKE WITH THEM AND LET THEM KNOW SHE IS STILL NOT RESPONSIVE TO STIMULI. HER 02 ARASH AT 97% RA THIS MORNING. AT 1045 SHE DESATTED TO 82. PUT PT ON TWO LITRES OF O2
[2018-11-15 12:00] VITALS: BP 136/55
[2018-11-15] MEDS: piperacillin/tazobactam inj. 3.375 GM in NS 50ml IV SCH (16:00)
--- NOTE | 2018-11-15 18:30 | NUR ---
Patient in room DEYSI 360. I have received report from CONCEPCION Diehl and had the opportunity to ask questions and assume patient care. Addendum: 11/16/18 at 0239 by Shellie Rubio RN Amended: Links added. Addendum: 11/16/18 at 0240 by Shellie Rubio RN dissregard. wrong time.
--- NOTE | 2018-11-15 18:30 | NUR ---
Patient in room DEYSI 360. I have received report from CONCEPCION Diehl and had the opportunity to ask questions and assume patient care. Addendum: 11/16/18 at 0241 by Shellie Rubio RN Amended: Links added.
[2018-11-15 19:00] VITALS: BP 152/73
[2018-11-15] MEDS: dextrose 5%-1/2 normal saline 1,000 ML IV SCH ×2 (19:00→20:58)
[2018-11-15] MEDS: lactobacillus rhamnosus 10,000 MMU CELLS/CAPSULE PO SCH (20:00)
[2018-11-15 23:30] VITALS: BP 155/68
[2018-11-16] MEDS: piperacillin/tazobactam inj. 3.375 GM in NS 50ml IV SCH ×3 (00:36→15:35)
--- NOTE | 2018-11-16 03:22 | NUR ---
Partial bath with warm wipes, oral care, mouth swabbed, moisturizer to lips. vanesa care and dodson care. Hair brushed, warm blanket given. Addendum: 11/16/18 at 0323 by Shellie Rubio RN Amended: Links added.
--- NOTE | 2018-11-16 03:24 | NUR ---
Pt does sl open eyes and mouth swabbed, pt sl attempts to suck on swab. done severa times with mouthwash, and then water. Addendum: 11/16/18 at 0325 by Shellie Rubio RN Amended: Links added.
[2018-11-16] MEDS: dextrose 5%-1/2 normal saline 1,000 ML IV SCH ×3 (03:35→15:35)
[2018-11-16 05:44] LABS: ANION GAP 11 (8-16); BLOOD UREA NITROGEN 17 MG/DL (7-18); BUN/CREATININE RATIO 22.1 (6.6-38.0); CALCIUM 8.2 MG/DL (8.5-10.1); CHLORIDE 114 MMOL/L (99-107); CREATININE 0.77 MG/DL (0.40-0.90); GLUCOSE 92 MG/DL (70-104); POTASSIUM 3.3 MMOL/L (3.5-5.1); SODIUM 144 MMOL/L (135-145); TOTAL CARBON DIOXIDE 18.6 MMOL/L (24-32); eGFR 72 ML/MIN
[2018-11-16 05:48] LABS: BASOPHILS # (AUTO) 0.1 X10'3 (0-0.2); BASOPHILS % (AUTO) 0.5 % (0-1); EOSINOPHILS # (AUTO) 0.1 X10'3 (0-0.9); EOSINOPHILS % (AUTO) 1.1 % (0-6); HEMATOCRIT 35.4 % (35.0-45.0); LYMPHOCYTES # (AUTO) 2.3 X10'3 (1.1-4.8); LYMPHOCYTES % (AUTO) 19.8 % (21-51); MEAN CORPUSCULAR HEMOGLOBIN 32.5 PG (27.0-31.0); MEAN CORPUSCULAR HGB CONC 33.8 g/dL (33.0-36.5); MEAN PLATELET VOLUME 9.7 FL (7.4-10.4); MONOCYTES # (AUTO) 1.4 X10'3 (0-0.9); MONOCYTES % (AUTO) 11.9 % (2-12); NEUTROPHILS # (AUTO) 7.6 X10'3 (1.8-7.7); NEUTROPHILS % (AUTO) 66.7 % (42-75); PLATELET COUNT 170 X10'3 (140-440); RED BLOOD COUNT 3.68 X10'6 (4.20-5.60); RED CELL DISTRIBUTION WIDTH 15.5 % (11.5-14.5); WHITE BLOOD COUNT 11.4 X10'3 (4.5-11.0)
--- NOTE | 2018-11-16 06:30 | NUR ---
Problems reprioritized. Patient report given, questions answered & plan of care reviewed with CONCEPCION Salgado. Addendum: 11/16/18 at 0707 by Shellie Rubio RN Amended: Links added.
[2018-11-16 07:00] VITALS: BP 162/81
--- NOTE | 2018-11-16 07:10 | NUR ---
Patient in room DEYSI 360. I have received report from ALLISON JAVIER and had the opportunity to ask questions and assume patient care.
[2018-11-16] MEDS: lactobacillus rhamnosus 10,000 MMU CELLS/CAPSULE PO SCH ×2 (07:35→20:00)
[2018-11-16 11:00] VITALS: BP 145/79
[2018-11-16] MEDS ORDERED: morphine 2 MG/ML inj. syringe IV PRN ×2 (15:37)
--- NOTE | 2018-11-16 18:01 | NUR ---
family visiting patient. no change in condition. all cares given. report given to Ami JAVIER
--- NOTE | 2018-11-16 18:10 | NUR ---
Follow up: Patient has BSS done this afternoon, BREAD PAN GREASER reports patient is unable to move bolus and unsafe PO d/t lack of responsiveness, BREAD PAN GREASER recommends NPO. Patient has Full Liquid diet order, notified MD of patient needing NPO now. D/w dietary and nurse. Addendum: 11/16/18 at [address] Amended: Links added.
[2018-11-16 19:00] VITALS: BP 152/69
[2018-11-17] VITALS: BP 150/61
[2018-11-17] MEDS: piperacillin/tazobactam inj. 3.375 GM in NS 50ml IV SCH ×4 (00:13→23:07)
[2018-11-17] MEDS: dextrose 5%-1/2 normal saline 1,000 ML IV SCH ×2 (01:20→23:07)
--- NOTE | 2018-11-17 06:26 | NUR ---
Problems reprioritized. Patient report given, questions answered & plan of care reviewed with Shanita JAVIER. Addendum: 11/17/18 at 0627 by Ami Hartman RN Amended: Links added.
[2018-11-17 06:39] LABS: BASOPHILS % (AUTO) 0.3 % (0-1); EOSINOPHILS # (AUTO) 0.2 X10'3 (0-0.9); EOSINOPHILS % (AUTO) 1.7 % (0-6); HEMATOCRIT 34.6 % (35.0-45.0); HEMOGLOBIN 11.5 g/dl (12.0-16.0); LYMPHOCYTES # (AUTO) 2.1 X10'3 (1.1-4.8); LYMPHOCYTES % (AUTO) 21.2 % (21-51); MEAN CORPUSCULAR HEMOGLOBIN 32.4 PG (27.0-31.0); MEAN CORPUSCULAR HGB CONC 33.3 g/dL (33.0-36.5); MEAN CORPUSCULAR VOLUME 97.2 FL (78-98); MEAN PLATELET VOLUME 9.2 FL (7.4-10.4); MONOCYTES # (AUTO) 1.4 X10'3 (0-0.9); MONOCYTES % (AUTO) 14.1 % (2-12); NEUTROPHILS # (AUTO) 6.3 X10'3 (1.8-7.7); NEUTROPHILS % (AUTO) 62.7 % (42-75); PLATELET COUNT 158 X10'3 (140-440); RED BLOOD COUNT 3.56 X10'6 (4.20-5.60); RED CELL DISTRIBUTION WIDTH 15.4 % (11.5-14.5)
[2018-11-17 06:52] LABS: ALBUMIN 1.7 G/DL (3.4-5.0); ANION GAP 10 (8-16); BLOOD UREA NITROGEN 10 MG/DL (7-18); BUN/CREATININE RATIO 16.4 (6.6-38.0); CALCIUM 8.1 MG/DL (8.5-10.1); CHLORIDE 111 MMOL/L (99-107); CREATININE 0.61 MG/DL (0.40-0.90); GLUCOSE 101 MG/DL (70-104); SODIUM 140 MMOL/L (135-145); TOTAL CARBON DIOXIDE 18.7 MMOL/L (24-32); eGFR > 90 ML/MIN
[2018-11-17 06:55] LABS: POTASSIUM 2.9 MMOL/L (3.5-5.1)
[2018-11-17 07:00] VITALS: BP 173/84
--- NOTE | 2018-11-17 07:18 | NUR ---
Patient in room DEYSI 360. I have received report from APRIL JAVIER and had the opportunity to ask questions and assume patient care.
[2018-11-17] MEDS ORDERED: potassium Cl 20 mEq SR tablet PO PRN (08:00)
[2018-11-17] MEDS ORDERED: magnesium Cl slow-release 64mg tablet PO PRN (08:00)
[2018-11-17] MEDS: lactobacillus rhamnosus 10,000 MMU CELLS/CAPSULE PO SCH ×2 (08:00→20:00)
[2018-11-17] MEDS ORDERED: potassium Cl 40MEQ/NS 500ml 500 ML IV PRN (08:00)
[2018-11-17] MEDS ORDERED: magnesium 2 GM in 50ml IV PRN (08:05)
[2018-11-17] MEDS ORDERED: magnesium 4gm in 100ml NS 100 ML IV PRN (08:05)
[2018-11-17] MEDS: potassium Cl 40MEQ/NS 500ml 500 ML IV PRN ×2 (08:37→16:13)
--- NOTE | 2018-11-17 08:46 | NUR ---
spoke with pt this morning. she responded with good morning. pt is actively responding to other questions. called Granddaughter, Jeannie she is on her way down
[2018-11-17 11:00] VITALS: BP 149/80
--- NOTE | 2018-11-17 17:57 | NUR ---
Problems reprioritized. Patient report given, questions answered & plan of care reviewed with Ami JAVIER.
[2018-11-17 19:00] VITALS: BP 148/77
[2018-11-18] VITALS: BP_SYST 145; BP_SYST 163; BP_DIAS 80; BP_DIAS 90
[2018-11-18 06:33] LABS: BASOPHILS # (AUTO) 0.1 X10'3 (0-0.2); BASOPHILS % (AUTO) 0.5 % (0-1); EOSINOPHILS # (AUTO) 0.1 X10'3 (0-0.9); HEMATOCRIT 38.7 % (35.0-45.0); HEMOGLOBIN 12.9 g/dl (12.0-16.0); LYMPHOCYTES # (AUTO) 2.1 X10'3 (1.1-4.8); LYMPHOCYTES % (AUTO) 19.2 % (21-51); MEAN CORPUSCULAR HEMOGLOBIN 32.3 PG (27.0-31.0); MEAN CORPUSCULAR HGB CONC 33.3 g/dL (33.0-36.5); MEAN CORPUSCULAR VOLUME 96.9 FL (78-98); MEAN PLATELET VOLUME 9.2 FL (7.4-10.4); MONOCYTES # (AUTO) 1.8 X10'3 (0-0.9); MONOCYTES % (AUTO) 16.5 % (2-12); NEUTROPHILS # (AUTO) 6.9 X10'3 (1.8-7.7); NEUTROPHILS % (AUTO) 62.8 % (42-75); PLATELET COUNT 201 X10'3 (140-440); RED CELL DISTRIBUTION WIDTH 15.2 % (11.5-14.5)
[2018-11-18 06:44] LABS: ALBUMIN 1.9 G/DL (3.4-5.0); ANION GAP 12 (8-16); BLOOD UREA NITROGEN 9 MG/DL (7-18); BUN/CREATININE RATIO 14.3 (6.6-38.0); CALCIUM 8.5 MG/DL (8.5-10.1); CHLORIDE 110 MMOL/L (99-107); CREATININE 0.63 MG/DL (0.40-0.90); GLUCOSE 96 MG/DL (70-104); MAGNESIUM 1.7 MG/DL (1.5-2.4); POTASSIUM 3.7 MMOL/L (3.5-5.1); SODIUM 141 MMOL/L (135-145); TOTAL CARBON DIOXIDE 19.2 MMOL/L (24-32); eGFR > 90 ML/MIN
[2018-11-18] MEDS: piperacillin/tazobactam inj. 3.375 GM in NS 50ml IV SCH ×2 (07:18→15:57)
[2018-11-18] MEDS: lactobacillus rhamnosus 10,000 MMU CELLS/CAPSULE PO SCH ×3 (07:18→20:42)
[2018-11-18] MEDS: magnesium hydroxide 30ml (MOM) UD suspension PO PRN ×2 (07:20→21:01)
[2018-11-18 07:36] VITALS: BP 150/79
--- NOTE | 2018-11-18 07:39 | NUR ---
Patient in room DEYSI 360. I have received report from rashaun white and had the opportunity to ask questions and assume patient care.
[2018-11-18 07:59] LABS: ANISOCYTOSIS 1+; PLATELET ESTIMATE NORMAL; POIKILOCYTOSIS FEW; SCHISTOCYTES FEW
--- NOTE | 2018-11-18 10:02 | NUR ---
family keeps putting the right side bed rail down when at bedside, but they keep forgetting to put it back up. I have repeatedly reminded them. I educated them on pt safety, they state they understand. Went in to check on pt at 1000 side rail down.
--- NOTE | 2018-11-18 10:02 | NUR ---
repeatedly have asked family members to put side rail up when leaving. Family keeps forgetting to do this.
[2018-11-18 11:00] VITALS: BP 130/69
[2018-11-18] MEDS ORDERED: non-formulary drug (Ondansetron Hcl (Zofran) 1 TAB) PO PRN (14:15)
[2018-11-18] MEDS ORDERED: traMADol 50MG tablet PO PRN (14:15)
[2018-11-18] MEDS ORDERED: magnesium hydroxide 30ml (MOM) UD suspension PO PRN (14:15)
[2018-11-18] MEDS ORDERED: nitroGLYCERIN 0.4mg SUBLingual tab SL PRN (14:15)
[2018-11-18] MEDS ORDERED: ondansetron 4mg rapidly disintigrating tab PO PRN (14:25)
[2018-11-18] MEDS: metoclopramide 10mg tablet PO SCH (15:57)
--- NOTE | 2018-11-18 16:22 | NUR ---
reassessment: Pt advanced to pureed/honey thick liquids per MD. JALIL ordered VIBRATING SCREED OPERATOR BSS since on 11/16 pt unsafe for PO admit w/ aspiration pneumonitis. Acute encephalopathy has resolved and pt more alert today per MD note. PO 0-25% avg meals w/ ensure puddings TIDWM restarted since PO. Will monitor for VIBRATING SCREED OPERATOR texture/liquid recs to determine appropriate ONS given low PO. Pt is to start on MVI, B6, vitamin D, and megace now that PO. LBM 11/17. Will monitor for additional protein needs and diet recs per VIBRATING SCREED OPERATOR. Rec: 1. advance diet per VIBRATING SCREED OPERATOR to regular 2. ensure pudding TIDWM 3. monitor for thin liquid ONS needs pending VIBRATING SCREED OPERATOR BSS and PO hx 4. weekly scaled wts 5. encourage PO Addendum: 11/18/18 at [address] Amended: Links added.
--- NOTE | 2018-11-18 17:41 | NUR ---
Problems reprioritized. Patient report given, questions answered & plan of care reviewed with FLORENTIN JAVIER.
--- NOTE | 2018-11-18 17:53 | NUR ---
Problems reprioritized. Patient report given, questions answered & plan of care reviewed with Giuliana JAVIER.
--- NOTE | 2018-11-18 18:30 | NUR ---
Patient in room DEYSI 360. I have received report from Shanita JAVIER and clinical nursing professor eDnise and had the opportunity to ask questions and assume patient care.
[2018-11-18 19:00] VITALS: BP 132/70
[2018-11-18] MEDS ORDERED: [UNRECOGNIZED DRUG - OTHER] SQ SCH (20:00)
[2018-11-18] MEDS ORDERED: HEPARIN SOD PORCINE SQ SCH (20:00)
[2018-11-18] MEDS ORDERED: NACL SQ SCH (20:00)
[2018-11-18] MEDS ORDERED: MEGESTROL ACETATE 400 MG PO SCH (20:00)
[2018-11-18] MEDS ORDERED: non-formulary drug (Potassium Chloride 1 TAB) PO SCH (20:00)
[2018-11-18] MEDS: potassium chloride 10mEq ER tablet PO SCH (20:42)
[2018-11-18] MEDS: megestrol acetate 400mg/10ml UD oral suspension PO SCH (20:42)
[2018-11-18] MEDS: heparin, porcine 5000 units/ml vial SQ SCH (20:44)
[2018-11-18] MEDS ORDERED: pyridoxine 50mg tablet PO SCH (21:00)
[2018-11-18] MEDS ORDERED: LORazepam 1 MG tablet PO SCH (21:00)
[2018-11-18] MEDS ORDERED: carVEDilol 3.125mg tablet PO SCH (21:00)
[2018-11-18] MEDS ORDERED: Melatonin 3mg tablet PO SCH (21:00)
[2018-11-19] VITALS: BP 123/69
[2018-11-19] MEDS: piperacillin/tazobactam inj. 3.375 GM in NS 50ml IV SCH ×2 (00:26→07:31)
--- NOTE | 2018-11-19 00:30 | NUR ---
Patient resting, sound asleep, unable to wake up to give reglan. Respirations nice and steady @ 14.
[2018-11-19 06:16] LABS: ALBUMIN 1.6 G/DL (3.4-5.0); ANION GAP 7 (8-16); BLOOD UREA NITROGEN 11 MG/DL (7-18); BUN/CREATININE RATIO 19.6 (6.6-38.0); CALCIUM 8.9 MG/DL (8.5-10.1); CHLORIDE 112 MMOL/L (99-107); CREATININE 0.56 MG/DL (0.40-0.90); GLUCOSE 101 MG/DL (70-104); MAGNESIUM 1.9 MG/DL (1.5-2.4); POTASSIUM 3.4 MMOL/L (3.5-5.1); SODIUM 141 MMOL/L (135-145); eGFR > 90 ML/MIN
[2018-11-19 06:29] LABS: BASOPHILS % (AUTO) 0.3 % (0-1); EOSINOPHILS # (AUTO) 0.2 X10'3 (0-0.9); HEMATOCRIT 35.9 % (35.0-45.0); HEMOGLOBIN 11.9 g/dl (12.0-16.0); MEAN CORPUSCULAR HEMOGLOBIN 32.2 PG (27.0-31.0); MEAN CORPUSCULAR HGB CONC 33.2 g/dL (33.0-36.5); MEAN PLATELET VOLUME 9.2 FL (7.4-10.4); MONOCYTES # (AUTO) 1.3 X10'3 (0-0.9); MONOCYTES % (AUTO) 14.3 % (2-12); NEUTROPHILS # (AUTO) 5.3 X10'3 (1.8-7.7); NEUTROPHILS % (AUTO) 60.4 % (42-75); PLATELET COUNT 183 X10'3 (140-440); RED CELL DISTRIBUTION WIDTH 15.2 % (11.5-14.5); WHITE BLOOD COUNT 8.8 X10'3 (4.5-11.0)
--- NOTE | 2018-11-19 06:30 | NUR ---
Problems reprioritized. Patient report given, questions answered & plan of care reviewed with Stephie JAVIER.
[2018-11-19 07:00] VITALS: BP 142/70
[2018-11-19] MEDS ORDERED: pantoprazole 40mg Tablet.DR PO SCH (07:30)
[2018-11-19] MEDS: megestrol acetate 400mg/10ml UD oral suspension PO SCH (07:32)
[2018-11-19] MEDS: potassium Cl 20 mEq SR tablet PO PRN ×2 (07:33→12:27)
[2018-11-19] MEDS: potassium chloride 10mEq ER tablet PO SCH (07:34)
[2018-11-19] MEDS: lactobacillus rhamnosus 10,000 MMU CELLS/CAPSULE PO SCH (07:34)
[2018-11-19] MEDS: metoclopramide 10mg tablet PO SCH ×2 (07:35)
[2018-11-19] MEDS: heparin, porcine 5000 units/ml vial SQ SCH (07:36)
[2018-11-19] MEDS: magnesium hydroxide 30ml (MOM) UD suspension PO PRN (07:38)
[2018-11-19] MEDS ORDERED: losartan 50mg tablet PO SCH (08:00)
[2018-11-19] MEDS ORDERED: multivitamins, therapeutics tablet PO SCH (08:00)
[2018-11-19] MEDS ORDERED: CHOLECALCIFEROL PO SCH (08:00)
[2018-11-19] MEDS ORDERED: furosemide 20MG tablet PO SCH (08:00)
[2018-11-19] MEDS ORDERED: aspirin 81mg tablet.DR PO SCH (08:00)
[2018-11-19] MEDS ORDERED: vitamin D (cholecalciferol) 1,000 unit tablet PO SCH (08:00)
[2018-11-19] MEDS ORDERED: non-formulary drug (Multivitamin (One Daily Multivitamin) 1 TAB) PO SCH (08:00)
[2018-11-19] MEDS ORDERED: non-formulary drug (Omeprazole 2 TAB) PO SCH (08:00)
[2018-11-19] MEDS ORDERED: amiodarone 200mg tablet PO SCH (08:00)
[2018-11-19] MEDS ORDERED: METR-159 PO (10:42)
[2018-11-19] MEDS ORDERED: LEVO500T2 PO (10:42)
[2018-11-19 11:00] VITALS: BP 130/67
--- NOTE | 2018-11-19 12:36 | NUR ---
PAGER ID: [phone] MESSAGE: [phone] Aggie Alhaji pt states she did not have a FC at [facility]. May I DC catheter? Lesvia [phone]
--- NOTE | 2018-11-19 15:30 | NUR ---
Pt. discharged in a stable condition after having a large BM. Dye catheter removed at 1400 and Nereida nurse at [facility] is aware pt. has not voided yet. IV dc'd, pressure bandage applied, no s/sx bleeding noted. Discharge paperwork reviewed with pt. Report called in to Nereida Thapa. [facility] personnel accompanied pt. out of hospital to [facility] on a gurney.
== END 2018-11-19 16:05 | DRG 871 ==
LOC: ER 09:57 → SUR 3N 11:46 → CMPBEDREQ 11-15 00:57
PROVIDERS: ADMIT Internal Medicine; ATTEND Internal Medicine
DX: A41.9 Sepsis, unspecified organism (principal); J69.0 Pneumonitis due to inhalation of food and vomit; G92 Toxic encephalopathy; I21.4 Non-ST elevation (NSTEMI) myocardial infarction; E43 Unspecified severe protein-calorie malnutrition; I50.43 Acute on chronic combined systolic (congestive) and diastolic (congestive) heart failure; Z68.1 Body mass index [BMI] 19.9 or less, adult; E87.2 Acidosis; N17.9 Acute kidney failure, unspecified; N39.0 Urinary tract infection, site not specified; I69.359 Hemiplegia and hemiparesis following cerebral infarction affecting unspecified side; B95.2 Enterococcus as the cause of diseases classified elsewhere; R65.20 Severe sepsis without septic shock; E87.6 Hypokalemia; F03.90 Unspecified dementia, unspecified severity, without behavioral disturbance, psychotic disturbance, mood disturbance, and anxiety; F41.9 Anxiety disorder, unspecified; G93.89 Other specified disorders of brain; I11.0 Hypertensive heart disease with heart failure; I25.10 Atherosclerotic heart disease of native coronary artery without angina pectoris; B96.1 Klebsiella pneumoniae [K. pneumoniae] as the cause of diseases classified elsewhere; I25.2 Old myocardial infarction; I48.0 Paroxysmal atrial fibrillation; K44.9 Diaphragmatic hernia without obstruction or gangrene; M81.0 Age-related osteoporosis without current pathological fracture; Z66 Do not resuscitate; Z85.41 Personal history of malignant neoplasm of cervix uteri; Z88.8 Allergy status to other drugs, medicaments and biological substances; Z88.6 Allergy status to analgesic agent; Z91.041 Radiographic dye allergy status; Z79.82 Long term (current) use of aspirin; Z79.899 Other long term (current) drug therapy; Z95.1 Presence of aortocoronary bypass graft
CPT/HCPCS: 36415; 70450; 71045; 74176; 80048; 80053; 81001; 82948; 83605; 83735; 83880; 84484; 85025; 85610; 87040; 87070; 87077; 87088; 87186; 92508; 92616; 93005; 96374; 97530; 99285; G0378; J0456; J0696; J1644; J2270; J2405; J2543; J3480; J8597

== ENCOUNTER 2019-07-14 10:52 | Inpatient (IN) | payer MEDICARE, OTHER ==
[~2019-07-14] VITALS: Ht 165.1 cm; Wt 43.0 kg
[~2019-07-14 10:52] MED LIST changes: +AMIO200T61 PO; -AMLO2.5T5 PO; -ATOR20TA PO; +BISA10SU11 RC; -DOCU-28 PO; -ESOM20CA38 PO; +FURO20TA4 PO; +MAGN400O6 PO; +MEGE40TA27 PO; -MELA1TAB17 PO; +MELA3TAB64 PO; +METO-292 PO; +MULT-933 PO; +OMEP20TA5 PO; +ONDA4TAB6 PO; +POTA10TA15 PO; +PYRI50TA13 PO; +TRAM50TA2 PO; +[UNRECOGNIZED DRUG - CODE] SQ
[2019-07-14] MEDS ORDERED: normal saline 1000ML IV soln IVB ONE (11:30)
[2019-07-14 11:51] LABS: BASOPHILS # (AUTO) 0.1 X10'3 (0-0.2); BASOPHILS % (AUTO) 1.1 % (0-1); EOSINOPHILS # (AUTO) 0.1 X10'3 (0-0.9); EOSINOPHILS % (AUTO) 1.7 % (0-6); HEMATOCRIT 36.8 % (35.0-45.0); HEMOGLOBIN 12.3 g/dl (12.0-16.0); LYMPHOCYTES # (AUTO) 2.1 X10'3 (1.1-4.8); LYMPHOCYTES % (AUTO) 24.4 % (21-51); MEAN CORPUSCULAR HEMOGLOBIN 32.3 PG (27.0-31.0); MEAN CORPUSCULAR HGB CONC 33.4 g/dL (33.0-36.5); MEAN CORPUSCULAR VOLUME 96.7 FL (78-98); MEAN PLATELET VOLUME 8.6 FL (7.4-10.4); MONOCYTES # (AUTO) 1.4 X10'3 (0-0.9); NEUTROPHILS # (AUTO) 4.8 X10'3 (1.8-7.7); NEUTROPHILS % (AUTO) 56.8 % (42-75); PLATELET COUNT 283 X10'3 (140-440); RED BLOOD COUNT 3.81 X10'6 (4.20-5.60); RED CELL DISTRIBUTION WIDTH 15.2 % (11.5-14.5); WHITE BLOOD COUNT 8.5 X10'3 (4.5-11.0)
[2019-07-14 12:05] LABS: ALANINE AMINOTRANSFERASE 10 U/L (12-78); ALBUMIN 2.5 G/DL (3.4-5.0); ALBUMIN/GLOBULIN RATIO 0.6 (1.1-1.5); ALKALINE PHOSPHATASE 65 IU/L (46-116); ANION GAP 6 (8-16); ASPARTATE AMINO TRANSFERASE 17 U/L (10-37); BILIRUBIN,TOTAL 0.6 MG/DL (0.1-1.0); BLOOD UREA NITROGEN 9 MG/DL (7-18); BUN/CREATININE RATIO 13.8 (6.6-38.0); CALCIUM 9.5 MG/DL (8.5-10.1); CHLORIDE 105 MMOL/L (99-107); CREATININE 0.65 MG/DL (0.40-0.90); GLUCOSE 97 MG/DL (70-104); POTASSIUM 4.6 MMOL/L (3.5-5.1); SODIUM 139 MMOL/L (135-145); TOTAL CARBON DIOXIDE 27.8 MMOL/L (24-32); TOTAL PROTEIN 6.7 G/DL (6.4-8.2); eGFR 87 ML/MIN
[2019-07-14 12:06] LABS: PLATELET ESTIMATE NORMAL
[2019-07-14 12:07] LABS: ACANTHOCYTES 1+; ANISOCYTOSIS 1+; ELLIPTOCYTES 1+
[2019-07-14] MEDS ORDERED: CefTRIAXone 2gm/D5W 50ml 50 ML IV ONE (12:30)
[2019-07-14] MEDS ORDERED: azithromycin/NS 500mg/250ml 250 ML IV ONE (12:30)
[2019-07-14] MEDS ORDERED: diltiazem 5mg/ml 5ml inj. IV ONE (12:40)
[2019-07-14] MEDS ORDERED: aspirin 81mg tab.chew PO ONE (12:40)
[2019-07-14] MEDS ORDERED: nitroGLYCERIN 0.2mg/hour patch TD ONE (12:40)
[2019-07-14] MEDS ORDERED: IPRA4AER IH (12:44)
[2019-07-14] MEDS ORDERED: ACET-2119 PO (12:44)
[2019-07-14] MEDS ORDERED: GUAI600T45 PO (12:44)
[2019-07-14] MEDS ORDERED: MORP15TA PO (12:44)
[2019-07-14] MEDS ORDERED: CEPH500C5 PO (12:44)
[2019-07-14] MEDS ORDERED: magnesium hydroxide 30ml (MOM) UD suspension PO PRN (13:05)
[2019-07-14] MEDS ORDERED: morphine 2 MG/ML inj. syringe IV PRN ×2 (13:05)
[2019-07-14] MEDS ORDERED: acetaminophen 325mg tablet PO PRN ×2 (13:05)
[2019-07-14] MEDS ORDERED: mag hydrox/Alum hydrox/simeth 30ml oral suspension PO PRN (13:05)
[2019-07-14] MEDS ORDERED: nitroGLYCERIN 0.4mg SUBLingual tab SL PRN (13:05)
[2019-07-14] MEDS ORDERED: HYDROcodone/acetaminophen 5mg/325mg tablet PO PRN (13:05)
[2019-07-14] MEDS: furosemide 20 MG/2 ML vial IV SCH ×2 (13:49→20:12)
--- NOTE | 2019-07-14 14:17 | NUR ---
ASSIST PT TO BSC TO VOID.
[2019-07-14 15:00] VITALS: BP 121/87
--- NOTE | 2019-07-14 16:33 | NUR ---
PAGER ID: [phone] MESSAGE: DR. HERNANDEZ, [id number]/HORN, SHE IS REQUESTING A COUGH SUPPRESSANT.MAY NEED AN EXPECTORANT. ALSO, HH DIET ORDERED, SHE IS ON PUREE WITH THIN LIQUID AT [facility] R/T CVA. TISHA [id number]. TY
--- NOTE | 2019-07-14 18:00 | NUR ---
Patient in room PCU 3016. I have received report from Mario JAVIER and had the opportunity to ask questions and assume patient care.
--- NOTE | 2019-07-14 18:23 | NUR ---
Problems reprioritized. Patient report given, questions answered & plan of care reviewed with CONCEPCION FAJARDO.
[2019-07-14 19:00] VITALS: BP 119/74
[2019-07-14] MEDS: metoprolol tartrate 25mg tablet PO SCH (20:12)
--- NOTE | 2019-07-14 21:30 | NUR ---
paged the provider due to no oxygen protcol for this pt, provider ordered to keep oxygen between PAGER ID: [phone] MESSAGE: Aggie Mane 84 F in [id number] admitted for Community Acquired Pneumonia and AFIB her oxygen saturation is currently 83% on RA and she does not have any orders for oxygen Thank you Dana JAVIER [phone]
[2019-07-14 23:00] VITALS: BP 121/82
[2019-07-15 00:38] LABS: BASOPHILS % (AUTO) 0.4 % (0-1); EOSINOPHILS # (AUTO) 0.1 X10'3 (0-0.9); EOSINOPHILS % (AUTO) 0.8 % (0-6); HEMATOCRIT 37.3 % (35.0-45.0); HEMOGLOBIN 12.6 g/dl (12.0-16.0); LYMPHOCYTES # (AUTO) 1.4 X10'3 (1.1-4.8); LYMPHOCYTES % (AUTO) 12.3 % (21-51); MEAN CORPUSCULAR HEMOGLOBIN 32.2 PG (27.0-31.0); MEAN CORPUSCULAR HGB CONC 33.7 g/dL (33.0-36.5); MEAN CORPUSCULAR VOLUME 95.7 FL (78-98); MEAN PLATELET VOLUME 8.7 FL (7.4-10.4); MONOCYTES % (AUTO) 9.2 % (2-12); NEUTROPHILS # (AUTO) 8.6 X10'3 (1.8-7.7); NEUTROPHILS % (AUTO) 77.3 % (42-75); PLATELET COUNT 276 X10'3 (140-440); RED CELL DISTRIBUTION WIDTH 15.1 % (11.5-14.5); WHITE BLOOD COUNT 11.1 X10'3 (4.5-11.0)
[2019-07-15 00:48] LABS: ALBUMIN 2.6 G/DL (3.4-5.0); ANION GAP 7 (8-16); BLOOD UREA NITROGEN 10 MG/DL (7-18); BUN/CREATININE RATIO 12.3 (6.6-38.0); CALCIUM 9.3 MG/DL (8.5-10.1); CHLORIDE 107 MMOL/L (99-107); CREATININE 0.81 MG/DL (0.40-0.90); GLUCOSE 79 MG/DL (70-104); POTASSIUM 3.9 MMOL/L (3.5-5.1); SODIUM 142 MMOL/L (135-145); TOTAL CARBON DIOXIDE 27.9 MMOL/L (24-32); eGFR 68 ML/MIN
--- NOTE | 2019-07-15 06:23 | NUR ---
Problems reprioritized. Patient report given, questions answered & plan of care reviewed with Marva JAVIER.
--- NOTE | 2019-07-15 06:35 | NUR ---
Patient in room PCU 3016. I have received report from CONCEPCION Cortez and had the opportunity to ask questions and assume patient care.
[2019-07-15 07:00] VITALS: BP 103/63
[2019-07-15] MEDS: furosemide 20 MG/2 ML vial IV SCH ×2 (08:37→19:55)
[2019-07-15] MEDS: enoxaparin 40mg/0.4ml syringe SUBCUT SCH (08:38)
[2019-07-15] MEDS: metoprolol tartrate 25mg tablet PO SCH ×2 (08:38→19:55)
[2019-07-15] MEDS: levoFLOXACIN-Levaquin 750MG/D5 150 ML IV SCH (08:39)
[2019-07-15] MEDS: aspirin 81mg tablet.DR PO SCH (08:39)
[2019-07-15] MEDS ORDERED: pneumococcal 23-VAL P-sac vacc 25 mcg/0.5ml vial IMVAC ONE (10:00)
[2019-07-15 11:00] VITALS: BP 113/68
[2019-07-15] MEDS: losartan 25mg tablet PO SCH (14:05)
[2019-07-15 15:00] VITALS: BP 105/35
[2019-07-15] MEDS: ondansetron/PF 4mg/2ml inj IV PRN (15:36)
[2019-07-15 18:00] VITALS: BP 114/61
--- NOTE | 2019-07-15 18:15 | NUR ---
Problems reprioritized. Patient report given, questions answered & plan of care reviewed with CONCEPCION Snyder.
--- NOTE | 2019-07-15 18:31 | NUR ---
RECEIVED REPORT FROM OLGA JAVIER AND ASSUMED PATIENT CARE
[2019-07-15] MEDS: lactobacillus rhamnosus 10,000 MMU CELLS/CAPSULE PO SCH (19:55)
[2019-07-15 22:00] VITALS: BP 110/65
[2019-07-16 02:00] VITALS: BP 128/66
[2019-07-16 05:09] LABS: BASOPHILS # (AUTO) 0.1 X10'3 (0-0.2); BASOPHILS % (AUTO) 0.7 % (0-1); EOSINOPHILS # (AUTO) 0.1 X10'3 (0-0.9); EOSINOPHILS % (AUTO) 0.9 % (0-6); HEMATOCRIT 37.2 % (35.0-45.0); HEMOGLOBIN 12.3 g/dl (12.0-16.0); LYMPHOCYTES # (AUTO) 1.5 X10'3 (1.1-4.8); LYMPHOCYTES % (AUTO) 14.2 % (21-51); MEAN CORPUSCULAR HGB CONC 33.1 g/dL (33.0-36.5); MEAN CORPUSCULAR VOLUME 96.7 FL (78-98); MEAN PLATELET VOLUME 8.5 FL (7.4-10.4); MONOCYTES # (AUTO) 1.1 X10'3 (0-0.9); MONOCYTES % (AUTO) 11.1 % (2-12); NEUTROPHILS # (AUTO) 7.5 X10'3 (1.8-7.7); NEUTROPHILS % (AUTO) 73.1 % (42-75); PLATELET COUNT 296 X10'3 (140-440); RED BLOOD COUNT 3.85 X10'6 (4.20-5.60); RED CELL DISTRIBUTION WIDTH 15.2 % (11.5-14.5); WHITE BLOOD COUNT 10.3 X10'3 (4.5-11.0)
[2019-07-16 05:23] LABS: ALBUMIN 2.3 G/DL (3.4-5.0); ANION GAP 6 (8-16); BLOOD UREA NITROGEN 13 MG/DL (7-18); BUN/CREATININE RATIO 18.1 (6.6-38.0); CALCIUM 9.3 MG/DL (8.5-10.1); CHLORIDE 105 MMOL/L (99-107); CREATININE 0.72 MG/DL (0.40-0.90); GLUCOSE 71 MG/DL (70-104); POTASSIUM 3.2 MMOL/L (3.5-5.1); SODIUM 142 MMOL/L (135-145); TOTAL CARBON DIOXIDE 31.3 MMOL/L (24-32); eGFR 78 ML/MIN
--- NOTE | 2019-07-16 06:08 | NUR ---
REPORT GIVEN TO OLGA JAVIER
--- NOTE | 2019-07-16 06:20 | NUR ---
Patient in room PCU 3016. I have received report from CONCEPCION Snyder and had the opportunity to ask questions and assume patient care.
[2019-07-16 07:00] VITALS: BP 130/65
[2019-07-16] MEDS: metoprolol tartrate 25mg tablet PO SCH (07:52)
[2019-07-16] MEDS: lactobacillus rhamnosus 10,000 MMU CELLS/CAPSULE PO SCH (07:52)
[2019-07-16] MEDS: ondansetron/PF 4mg/2ml inj IV PRN (07:52)
[2019-07-16] MEDS: levoFLOXACIN-Levaquin 750MG/D5 150 ML IV SCH (07:52)
[2019-07-16] MEDS: furosemide 20 MG/2 ML vial IV SCH (07:52)
[2019-07-16] MEDS: losartan 25mg tablet PO SCH (07:52)
[2019-07-16] MEDS: aspirin 81mg tablet.DR PO SCH (07:53)
[2019-07-16] MEDS: enoxaparin 40mg/0.4ml syringe SUBCUT SCH (07:53)
[2019-07-16] MEDS ORDERED: K and/or MAG REPLACEMENT MC SCH (10:00)
[2019-07-16] MEDS ORDERED: magnesium Cl slow-release 64mg tablet PO PRN (10:00)
[2019-07-16] MEDS ORDERED: potassium CL 10mEq/100ml bag 100 ML IV PRN (10:00)
[2019-07-16] MEDS ORDERED: acetaminophen 325mg tablet PO PRN (10:00)
[2019-07-16] MEDS ORDERED: potassium Cl 20 mEq SR tablet PO PRN ×2 (10:00)
[2019-07-16] MEDS ORDERED: pneumococcal 23-VAL P-sac vacc 25 mcg/0.5ml vial IMVAC ONE (10:00)
[2019-07-16] MEDS ORDERED: magnesium 4gm in 100ml NS 100 ML IV PRN (10:00)
[2019-07-16 11:00] VITALS: BP 99/57
--- NOTE | 2019-07-16 12:44 | NUR ---
Page sent to Dr. Charles regarding positive blood cultures. Awaiting response. consulting services manager Shamika also notified.
--- NOTE | 2019-07-16 13:05 | NUR ---
Patient stable for transfer per MD. PIV removed from left upper arm, catheter intact. Tele monitor removed and returned to [employer]. Report called to Elbert Laws, Spoke with Jeannie JAVIER. Patient transported off unit be [facility] staff via wheel chair.
== END 2019-07-16 13:05 | DRG 871 ==
LOC: ER 10:52 → ED HOLD 13:11 → PCU 3S 15:41
PROVIDERS: ADMIT Internal Medicine; ATTEND Internal Medicine
PROC: 3E0234Z Introduction of Serum, Toxoid and Vaccine into Muscle, Percutaneous Approach (ICD-10-PCS; principal; 2019-07-16)
DX: A41.9 Sepsis, unspecified organism (principal); J18.9 Pneumonia, unspecified organism; E43 Unspecified severe protein-calorie malnutrition; I50.23 Acute on chronic systolic (congestive) heart failure; I24.9 Acute ischemic heart disease, unspecified; Z68.1 Body mass index [BMI] 19.9 or less, adult; I11.0 Hypertensive heart disease with heart failure; I48.91 Unspecified atrial fibrillation; I25.10 Atherosclerotic heart disease of native coronary artery without angina pectoris; M81.0 Age-related osteoporosis without current pathological fracture; Z66 Do not resuscitate; Z79.899 Other long term (current) drug therapy; Z85.41 Personal history of malignant neoplasm of cervix uteri; I25.2 Old myocardial infarction; Z86.73 Personal history of transient ischemic attack (TIA), and cerebral infarction without residual deficits; Z87.891 Personal history of nicotine dependence; Z95.1 Presence of aortocoronary bypass graft; Z23 Encounter for immunization; Z88.8 Allergy status to other drugs, medicaments and biological substances; Z91.041 Radiographic dye allergy status
CPT/HCPCS: 36415; 71045; 76937; 80048; 80053; 83605; 83880; 84484; 85025; 85610; 87040; 87077; 87081; 87186; 93005; 93306; 99285; G0378; J0456; J0696; J1650; J1940; J1956; J2270; J2405; J3490